=== PATIENT | male | born 1945 | race Caucasian/White ===

== ENCOUNTER 2017-05-08 17:09 | Inpatient (IN) ==
[2017-05-08 18:26] LABS: Hematocrit 20.9 VOL% (42.0-52.0); Hemoglobin 7.3 GM/DL (14.0-18.0); Lymphocytes # 0.4 10*3/uL (1.4-4.0); Mean Corpuscular HGB Conc 34.9 GM/DL (32-36); Mean Corpuscular Hemoglobin 36 PG (27-34); Mean Platelet Volume 9.2 FL (9.6-12.0); Monocytes # 0.1 10*3/uL (0.11-0.8); Neutrophils # 0.1 10*3/uL (1.4-7.4); Platelet Count 122 T/CUMM (130-400); Red Blood Count 2.03 MC/CUMM (3.8-5.5); Red Cell Distribution Width 14.3 % (9.3-17.3)
[2017-05-08 18:28] LABS: White Blood Count 0.5 T/CUMM (4-12)
[2017-05-08 18:41] LABS: Alanine Aminotransferase 11 U/L (16-61); Albumin 2.9 G/DL (3.4-5.0); Alkaline Phosphatase 56 U/L (45-117); Aspartate Amino Transferase 11 U/L (0-37); Blood Urea Nitrogen 12 MG/DL (7-18); Calcium 8.3 MG/DL (8.5-10.1); Glucose 97 MG/DL (74-106); Osmolality,Calculated 272.8 MOS/KG (273-304); Sodium 137 MMOL/L (136-145); Total Protein 6.5 G/DL (6.4-8.3); Troponin I Only < 0.015 NG/ML (0.00-0.045)
--- NOTE | 2017-05-08 18:41 | Emergency Department Note ---
IJanneth Emily, am scribing for, and in the presence of, Hanny Sheikh DO 18:17. IAguilar Debra, DO, personally performed the services described in this documentation, ascribed by Yesi Lagunas in my presence, and it is both accurate and complete [id number] . Arrival - Arrival Chief Complaint: Weakness Stated Complaint: breathibg, blood count low ED Nursing Triage Note: C/o generalized weakness-onset 5 days ago. Patient was sent by home health for further evaluation of WBC count of 0.45. Mode of Arrival: Wheelchair Limitations: No Limitations Source: Patient - History of Present Illness HPI Narrative: Pt is a 72 y/o male who was referred from Home Health for further evaluation of low WBC of 0.45. Pt c/o weakness for past 5 days. Pt reports having UTI dx today by Home Healthcare with blood work showing, with intermittent bilateral side pains. Pt has associated sx of SOB that started today. Pt notes having pains from his arthritis. Onset (ago): day(s) Consistency: constant Severity: mild, moderate Severity scale (1-10): 4 Quality: aching Allergies/Adverse Reactions: Allergies Allergy/AdvReac Type Severity Reaction Status Date / Time No Known Allergies Allergy Verified 12/12/16 12:56 Home Medications: Home Medications Medication Instructions Recorded Confirmed Type Acetaminophen with Codeine 1 each PO Q6H PRN 08/27/15 04/15/16 History [Acetaminophen-Cod #4 Tablet] Omeprazole [Prilosec] 20 mg PO DAILY 08/27/15 04/15/16 History Citalopram [CeleXA] 20 mg PO BEDTIME 04/15/16 04/15/16 History Potassium Chloride 20 meq PO DAILY 04/15/16 04/15/16 History Triamterene/Hctz 37.5-25 Tab 1 tablet PO DAILY 04/15/16 04/15/16 History [Maxzide 37.5-25] Albuterol Inhaler [Proventil 2 puff INH Q6H PRN #2 inhaler 04/20/16 Rx Inhaler] Fluticasone/Salmeterol 250-50 1 puff INH BID #90 diskus 04/20/16 Rx [Advair 250-50] cephALEXin [Keflex] 500 mg PO Q8HR #20 capsule 04/20/16 Rx predniSONE TAB [PredniSONE] 10 mg PO BID #30 tablet 04/20/16 Rx Ondansetron Tab [Zofran Tab] 4 mg PO Q6H #20 tablet 12/12/16 Rx Sulfameth/Trimeth 800-160 Tab 1 tablet PO BID #14 tablet 12/12/16 Rx [Bactrim DS Tab] Review of System - Review of System 12 point system: reviewed and no additional remarkable complaints except as stated - Review of System Constitutional: Present: fever (low grade in ED), weakness. Absent: chills Respiratory: Present: respiratory distress (SOB). Absent: cough Cardiovascular: Absent: chest pain, palpitations, syncope Gastrointestinal: Present: abdominal pain (intermittent both side pains). Absent: nausea, vomiting, diarrhea Musculoskeletal: Absent: arm pain, back pain Skin: Absent: rash Neurological: Absent: headache Psychiatric: Absent: anxiety Medical,Surgical,& Family Hx - Medical History Cardio: History of: Hypertension Endocrine: No history of: Diabetes Mellitus (IDDM), Diabetes Mellitus (NIDDM) Rheumatology: History of;: Rheumatoid Arthritis Respiratory: History of: COPD, Respiratory Problems ("Rheumatoid lung") Renal: No history of: Renal Failure, Renal Problems Genitourinary: History of: Bladder Problem (incontinence since prostatectomy), Prostate Problems, Genitourinary Cancer (prostate CA) No history of: Kidney Stones Gastrointestinal: No history of: Gastrointestinal Bleed, Liver Problems, GI Problems Musculoskeletal: History of: Musculoskeletal Problems (Sxgijgk-Younk-Wcdix lower extremities) - Surgical History Reproductive Surgeries: Surgical HX of;: Prostate Surgery (prostatectomy for prostate CA) - Family History Family History: Reports;: Family Hypertension - Social History Smoking Status: Current every day smoker Frequency of Alcohol Use: None Type of Drug Use: None Marital Status: Single Lives With:: Alone Functional capacity: independent ambulation Exam Vital Signs: Vital Signs Temperature 100.4 F H 05/08/17 17:23 Pulse Rate 101 H 05/08/17 18:30 Respiratory Rate 20 05/08/17 18:30 Blood Pressure 124/52 05/08/17 18:30 O2 Sat by Pulse Oximetry 100 05/08/17 18:30 - General General appearance: alert, in no apparent distress - Head Head exam: Present: atraumatic, normocephalic - Eye Eye exam: Present: PERRL, EOMI - ENT ENT exam: Present: mucous membranes moist. Absent: mucous membranes dry - Neck Neck exam: Present: full ROM. Absent: tenderness - Chest Chest inspection: Present: symmetric chest wall rise. Absent: tenderness - Respiratory Respiratory exam: Present: normal lung sounds bilaterally. Absent: accessory muscle use, respiratory distress, wheezes - Cardiovascular Cardiovascular exam: Present: regular rate, normal rhythm, normal heart sounds. Absent: tachycardia - Abdominal Exam Abdominal exam: Present: soft, normal bowel sounds. Absent: distention, tenderness, guarding, rebound - Extremities Exam Extremities exam: Present: full ROM. Absent: tenderness, pedal edema - Neurological Exam Neurological exam: Present: alert, oriented X3, CN II-XII intact. Absent: motor sensory deficit - Psychiatric Psychiatric exam: Present: normal affect, normal mood - Skin Skin exam: Present: warm, dry Course Course Narrative: spoke with hospitalist service who will admit pt. pt is stable at this time. has low wbc, low potassium and low h and h. also has uti , for which 1 gram rocephin was given. Results - Labs CBC & BMP: 05/08/17 17:54 05/08/17 17:54 Lab Results: I have reviewed the patients labs Labs: Laboratory Tests 05/08/17 05/08/17 05/08/17 17:54 17:54 18:20 WBC 0.5 L* RBC 2.03 L Hgb 7.3 L Hct 20.9 L MCV 103.0 H MCH 36 H Plt Count 122 L MPV 9.2 L Neut % (Auto) 10.0 L Lymph % (Auto) 76.0 H Neut # (Auto) 0.1 L Lymph # (Auto) 0.4 L [place] # (Auto) 0.1 L Potassium 3.0 L Chloride 96 L Calculated Osmolality 272.8 L Calcium 8.3 L ALT 11 L Albumin 2.9 L Globulin 3.6 H Albumin/Globulin Ratio 0.8 L Urine Appearance Cloudy Urine pH 6.0 Ur Specific [place] 1.008 Urine Protein 30 Urine Glucose (UA) Negative Urine Ketones 5 Urine Blood Moderate Urine Urobilinogen 4.0 H Urine Leukocytes Small H Urine RBC 2 Urine WBC 10 Ur Squamous Epith Cells Occasional Urine Bacteria Many Urine Mucus Moderate - EKG EKG results: interpreted by ABDIEL, WNL, sinus rhythm Disposition Clinical Impression: Anemia, Hypokalemia, Leukopenia, UTI (urinary tract infection) Case discussed with: patient Disposition: Still a Patient Condition: Stable Time of Disposition: 19:01
[2017-05-08 18:43] LABS: Apearance,Urine CLOUDY (Clear); Bacteria,Urine Many /HPF (Few); Bilirubin,Urine Negative (Negative); Blood, Urine Moderate mg/dL (Negative); Glucose,Urine (UA) Negative (Negative); Ketones,Urine 5 mg/dL (Negative); Mucus,Urine Moderate /LPF (Occasional); Nitrite,Urine Negative (Negative); Protein,Urine 30 MG/DL; RBC,Urine 2 /HPF (0-4); Squamous Epithelial Cell,Urine Occasional /HPF (0-10); Urine Color Yellow (Yellow); Urine Specific Gravity 1.008 (1.001-1.035); WBC,Urine 10 /HPF (0-6)
--- NOTE | 2017-05-08 18:44 | XRay Report ---
Portable chest Date: 05/08/2017 Clinical history: Weakness, chest pain Comparison: 04/16/2016 Technique: Portable AP sitting chest Findings: The heart is normal in size. The lungs remain overexpanded with minimal atelectasis at the lung bases. Stable mediastinum with degenerative changes. Impression: Bullous emphysema with chronic scarring. Minimal atelectasis at the lung bases. PROCEDURE INTERPRETED AT [facility] DEPARTMENT OF RADIOLOGY Final Report Signed by: Dr. Celine Beal
[2017-05-08] MEDS ORDERED: POTASSIUM CHLORIDE 20 MEQ TABLET PO STA (18:45)
[2017-05-08 18:50] LABS: Lymphocytes 78 % (20-55); Segmented Neutrophils 18 % (50-85)
[2017-05-08 18:51] LABS: Eosinophils 2 % (0-10); Giant Platelets Few; Total Cells Counted 50
[2017-05-08] MEDS ORDERED: ONDANSETRON 4 MG/2 ML VIAL IV PRN (18:51)
[2017-05-08 18:52] LABS: Anisocytosis 2+; Macrocytosis 2+; Poikilocytosis Slight; Smudge Cells Few
[2017-05-08] MEDS ORDERED: POTASSIUM CHLORIDE 20 MEQ TABLET PO ONE (18:52)
[2017-05-08] MEDS ORDERED: SODIUM CHLORIDE 0.9% 1,000 ML IV SCH (19:00)
[2017-05-08] MEDS ORDERED: cefTRIAXone 1,000 MG in SODIUM CHLORIDE 0.9% 100 ML IV STA (19:01)
[2017-05-08] MEDS ORDERED: cefTRIAXone 1,000 MG VIAL ONE (19:14)
[2017-05-08 19:18] LABS: % Iron Saturation 23.1 % (18-50); Ferritin 451.2 ng/ml (26-388); Free T4 (Free Thyroxine) 1.38 NG/DL (0.76-1.46)
[2017-05-08 19:22] LABS: Risk Ratio 3.35; Thyroid Stimulating Hormone 0.779 uIU/ml (0.358-3.74); VLDL CHOLESTEROL 20.6 MG/DL
[2017-05-08 19:25] LABS: Folate 7.3 NG/ML (5.4-24.0)
--- NOTE | 2017-05-08 20:22 | Hospitalist History & Physical ---
Assessment and Plan - Time spent with patient Time spent with patient: Less than 30 minutes (1) Anemia Status: Chronic Assessment and plan: We will check fecal Hemoccult and CBC in the morning. Order 1 unit packed red blood cells due to low H&H, shortness of breath and fatigue. Current Visit: Yes (2) Hypokalemia Status: Chronic Assessment and plan: Patient with history of hypokalemia, 40 mEq oral potassium given in ED. Potassium chloride 20 mEq p.o. daily. Current Visit: Yes (3) Leukopenia Status: Acute Assessment and plan: Patient with history of leukopenia. Check B12 in a.m. Recheck CBC in a.m. Blood cultures pending. Start Zosyn 3.375 g every 8 hours Current Visit: Yes (4) UTI (urinary tract infection) Status: Acute Assessment and plan: Urine culture pending. Zosyn 3.375 mg IV every 8 hours. Current Visit: Yes Qualifiers: Hematuria presence: without hematuria History of Present Illness Chief complaint: Neutropenic fever History of present illness: Mr. Eastman is a 72 year old male who presents to the [facility] ED [facility] complaining of several day history of worsening fatigue and malaise. Patient states he has felt very fatigued lately and becomes short of breath very easily. He has a history of prostate cancer with prostatectomy and saw Dr. Hardy for follow-up. He has not seen Dr. Hardy in about 6 months and has been recently released from his care due to no oncologic activity. He states that he still smokes about a half pack a day. He states that he was supposed to be on blood thinners and hypertension meds but he does not take them, believing that this will make him lose more weight. He states that his appetite is decreased but he feels that he keeps up with his fluid intake. He denies hematochezia or melena. He denies any cardiac history. In the ED ian patient has a fever of 100.4F, positive for UTI, hemoglobin of 7.3 and leukopenia. He states that he has been told he had a low white count before on a prior admission as well as anemia. We will be admitted to the inpatient service for evaluation and treatment of neutropenic fever. Patient wishes to be a DNR. Home Medications Medication Instructions Recorded Confirmed Type Acetaminophen with Codeine 1 each PO Q6H PRN 08/27/15 05/08/17 History [Acetaminophen-Cod #4 Tablet] Citalopram [CeleXA] 20 mg PO BEDTIME 04/15/16 05/08/17 History Potassium Chloride 20 meq PO QPM 04/15/16 05/08/17 History Triamterene/Hctz 37.5-25 Tab 1 tablet PO DAILY 04/15/16 05/08/17 History [Maxzide 37.5-25] Albuterol Inhaler [Proventil 2 puff INH Q6H PRN #2 inhaler 04/20/16 05/08/17 Rx Inhaler] Fluticasone/Vilanterol [Breo 1 puff INH DAILY 05/08/17 05/08/17 History Ellipta 100-25 Mcg INH] Omeprazole [Omeprazole] 40 mg PO QPM 05/08/17 05/08/17 History Allergies Allergy/AdvReac Type Severity Reaction Status Date / Time No Known Allergies Allergy Verified 12/12/16 12:56 Medical,Surgical,& Family Hx - Medical History Cardio: History of: Hypertension Endocrine: No history of: Diabetes Mellitus (IDDM), Diabetes Mellitus (NIDDM) Rheumatology: History of;: Rheumatoid Arthritis Respiratory: History of: COPD, Respiratory Problems ("Rheumatoid lung") Renal: No history of: Renal Failure, Renal Problems Genitourinary: History of: Bladder Problem (incontinence since prostatectomy), Prostate Problems, Genitourinary Cancer (prostate CA) No history of: Kidney Stones Gastrointestinal: No history of: Gastrointestinal Bleed, Liver Problems, GI Problems Musculoskeletal: History of: Musculoskeletal Problems (Srxdhpp-Ezzak-Rnxnq lower extremities) - Surgical History Reproductive Surgeries: Surgical HX of;: Prostate Surgery (prostatectomy for prostate CA) - Family History Family History: Reports;: Family Hypertension - Social History Smoking Status: Current every day smoker Frequency of Alcohol Use: None Type of Drug Use: None 12 point system: reviewed and no additional remarkable complaints except as stated - Constitutional Constitutional: Present: as per HPI, fatigue, fever(s), lethargy, malaise - Respiratory Respiratory: Present: dyspnea on exertion Exam - Constitutional Vitals: Period Temp Pulse Resp BP Sys/Jaquez Pulse Ox Last 24 Hr 100.4 F-100.4 F 89-103 18-20 115-133/52-67 97-100 General appearance: under weight - Head Head exam: Present: normal inspection - Eye Eye exam: Present: EOMI Pupils: Present: LASHAWN - Neck Neck exam: Present: normal inspection - Respiratory Respiratory exam: Present: clear to auscultation bilaterally - Cardiovascular Cardiovascular exam: Present: regular rate and rhythm - GI/Abdominal GI/Abdominal exam: Present: normal bowel sounds - Extremities Exam Extremities exam: Present: edema (Edema in feet bilaterally, right worse than left.) - Neurological Exam Neurological exam: Present: alert, oriented X3 - Psychiatric Psychiatric exam: Present: normal affect, normal mood - Skin Skin exam: Present: normal color, warm Results - Labs CBC & BMP: 05/08/17 17:54 05/08/17 17:54 Lab Results: I have reviewed the past 24 hour labs Quality Measures - VTE Contraindication to Pharmacological VTE Prophylaxis: Active Bleeding
[2017-05-08] MEDS ORDERED: SODIUM CHLORIDE 0.9% 250 ML IV PRN (21:11)
[2017-05-08] MEDS ORDERED: ALBUTEROL INH PRN (21:11)
[2017-05-08] MEDS: SODIUM CHLORIDE 0.9% 1,000 ML IV SCH (21:24)
[2017-05-08] MEDS: PIPERACILLIN/TAZOBACTAM 3,375 MG in SODIUM CHLORIDE 0.9% 100 ML IV SCH (22:01)
[2017-05-08] MEDS: CITALOPRAM 20 MG TABLET PO SCH (22:03)
[2017-05-09] MEDS ORDERED: ONDANSETRON 4 MG/2 ML VIAL IV PRN (00:27)
[2017-05-09] MEDS: ACETAMINOPHEN 325 MG TABLET PO PRN ×3 (00:45→21:43)
[2017-05-09] MEDS: PIPERACILLIN/TAZOBACTAM 3,375 MG in SODIUM CHLORIDE 0.9% 100 ML IV SCH ×3 (06:35→21:40)
--- NOTE | 2017-05-09 08:24 | EKG Report ---
Stationary ECG Study [facility] ER Test Date: 05/08/2017 6:41:33 PM Pat Name: BONNIE SAHA Department: Room: 428 Gender: M Cupboard Builder: : 1945 Requested by: Hanny Sheikh Order Number: [id number] Reading MD: KIANNA GOMEZ Intervals [place] Rate: 88 P: 81 MN: 124 QRS: 106 QRSD: 105 T: 61 QT: 372 QTc: 418 Interpretive Statements SINUS RHYTHM RIGHT AXIS DEVIATION NON-SPECIFIC IVCD Electronically Signed On 05-09-17 10:07:58 CDT by KIANNA GOMEZ [email or web address]
[2017-05-09] MEDS: POTASSIUM CHLORIDE 20 MEQ TABLET PO SCH (08:31)
[2017-05-09] MEDS: PANTOPRAZOLE 40 MG VIAL IV SCH (08:31)
--- NOTE | 2017-05-09 10:34 | Oncology Progress Note ---
Oncology Subjective PN Interval history: Patient known from initial consultation April 2016. He had significant neutropenia at that time which was felt related to his underlying rheumatoid arthritis. He is admitted with malaise and fatigue. He does have a symptomatic anemia and has received transfusions. Reticulocyte count is mildly elevated. Haptoglobin is ordered to assess for hemolysis. Fecal occult blood testing is also pending. The patient states that he was scheduled for both upper and lower endoscopy during the month of May. He is having some mild dysphagia to solid foods and may have some degree of esophageal narrowing. This was once previously evaluated by Dr. Shook with an EGD. He does have a gram-negative UTI and is receiving antibiotics. I do not appreciate any adenopathy or splenomegaly on examination. I will give Neupogen to increase his white blood cell count during his infectious process. Platelets are acceptable. The anemia should be worked up independently of the neutropenia at this time. Exam - Constitutional Vitals: Period Temp Pulse Resp BP Sys/Jaquez Pulse Ox Last 24 Hr 98.1 F-101.0 F 75-103 18-20 92-138/34-67 95-100 Results - Labs CBC & BMP: 05/08/17 17:54 05/08/17 17:54 Quality Measures - VTE Contraindication to Pharmacological VTE Prophylaxis: Active Bleeding
[2017-05-09] MEDS: SODIUM CHLORIDE 0.9% 1,000 ML IV SCH (10:53)
[2017-05-09] MEDS: FILGRASTIM-SNDZ 300 MCG/0.5 ML SYRINGE SUBCUT SCH (11:04)
--- NOTE | 2017-05-09 11:20 | Hospitalist Progress Note ---
Assessment and Plan - Time spent with patient Time spent with patient: Greater than 30 minutes (1) Pancytopenia Status: Acute Assessment and plan: Oncology on board and BM biopsy thursday. Current Visit: Yes (2) UTI (urinary tract infection) Status: Acute Assessment and plan: Continue antibiotics. Current Visit: Yes Qualifiers: Hematuria presence: without hematuria (3) Anemia Status: Chronic Assessment and plan: Retics appropriately elevated. JERILYN based on panel. Recheck levels. Heme occults to check for GI bleeding. Current Visit: Yes Hospitalist: Subjective Interval history: Received 2 units pRBCs this morning. Started on Zosyn for UTI. Reports feeling better this morning. Exam - Constitutional Vitals: Period Temp Pulse Resp BP Sys/Jaquez Pulse Ox Last 24 Hr 98.1 F-101.0 F 75-103 18-20 92-138/34-67 95-100 General appearance: normal weight, no acute distress, disheveled - Head Head exam: Present: normocephalic, atraumatic - Eye Eye exam: Present: EOMI Pupils: Present: LASHAWN - ENT ENT exam: Present: normal exam - Neck Neck exam: Present: normal inspection - Respiratory Respiratory exam: Present: clear to auscultation bilaterally. Absent: rhonchi, wheezes - Cardiovascular Cardiovascular exam: Present: regular rate and rhythm. Absent: gallop, rubs, systolic murmur - GI/Abdominal GI/Abdominal exam: Present: normal bowel sounds, soft. Absent: distended, firm , guarding, tenderness, rebound - Extremities Exam Extremities exam: Present: normal inspection. Absent: calf tenderness, edema Results - Labs CBC & BMP: 05/08/17 17:54 05/08/17 17:54 Lab Results: I have reviewed the past 24 hour labs Quality Measures - VTE Contraindication to Pharmacological VTE Prophylaxis: Active Bleeding
[2017-05-09 11:46] LABS: Albumin 2.4 G/DL (3.4-5.0); Bilirubin,Total 1.1 MG/DL (0.2-1.0); Magnesium 1.8 MG/DL (1.8-2.4); Osmolality,Calculated 280.4 MOS/KG (273-304); Potassium 3.5 MMOL/L (3.5-5.1); Total Protein 5.4 G/DL (6.4-8.3)
[2017-05-09] MEDS: Fluticasone/Vilanterol [Breo Ellipta 100-25 Mcg Inh] 1 PUFF INH SCH (16:27)
[2017-05-09] MEDS: CITALOPRAM 20 MG TABLET PO SCH (21:40)
[2017-05-10 02:22] LABS: Hematocrit 22.3 VOL% (42.0-52.0); Hemoglobin 7.6 GM/DL (14.0-18.0); Immature Granulocytes Absolute 0.04 #; Lymphocytes # 0.4 10*3/uL (1.4-4.0); Lymphocytes % 62.7 % (21.2-54.2); Mean Corpuscular HGB Conc 34.1 GM/DL (32-36); Mean Corpuscular Hemoglobin 33 PG (27-34); Mean Corpuscular Volume 95.3 FL (87-102); Mean Platelet Volume 9.4 FL (9.6-12.0); Monocytes # 0.2 10*3/uL (0.11-0.8); Monocytes % 22.4 % (1.7-12.7); Neutrophils % 5.9 % (38.7-73.9); Platelet Count 97 T/CUMM (130-400); Red Blood Count 2.34 MC/CUMM (3.8-5.5); Red Cell Distribution Width 20.8 % (9.3-17.3)
[2017-05-10 02:30] LABS: White Blood Count 0.7 T/CUMM (4-12)
[2017-05-10 03:10] LABS: Band Neutrophils 7 % (0-10); Lymphocytes 77 % (20-55); Metamyelocytes 3 %; Myelocytes 10 %; Nucleated Red Blood Cells 1 (0-5); Segmented Neutrophils 3 % (50-85); Total Cells Counted 100
[2017-05-10 03:11] LABS: Anisocytosis 1+; Platelet Estimate Decreased
[2017-05-10] MEDS: SODIUM CHLORIDE 0.9% 1,000 ML IV SCH (05:59)
[2017-05-10] MEDS: PIPERACILLIN/TAZOBACTAM 3,375 MG in SODIUM CHLORIDE 0.9% 100 ML IV SCH (06:03)
[2017-05-10] MEDS: PANTOPRAZOLE 40 MG VIAL IV SCH (08:46)
[2017-05-10] MEDS: POTASSIUM CHLORIDE 20 MEQ TABLET PO SCH (08:46)
[2017-05-10] MEDS: FILGRASTIM-SNDZ 300 MCG/0.5 ML SYRINGE SUBCUT SCH (08:46)
[2017-05-10] MEDS ORDERED: SODIUM CHLORIDE 0.9% 250 ML IV PRN (11:03)
--- NOTE | 2017-05-10 11:03 | Hospitalist Progress Note ---
Assessment and Plan - Time spent with patient Time spent with patient: Greater than 30 minutes (1) Pancytopenia Status: Acute Assessment and plan: Oncology on board and BM biopsy thursday. Current Visit: Yes (2) UTI (urinary tract infection) Status: Acute Assessment and plan: Continue antibiotics. Current Visit: Yes Qualifiers: Hematuria presence: without hematuria (3) Anemia Status: Chronic Assessment and plan: Awaiting heme occults. Will transfuse another 2 units. Current Visit: Yes Hospitalist: Subjective Interval history: No complaints or overnight events. Exam - Constitutional Vitals: Period Temp Pulse Resp BP Sys/Jaquez Pulse Ox Last 24 Hr 97.7 F-100.3 F 73-85 16-18 107-131/49-62 98-100 General appearance: no acute distress - Head Head exam: Present: normocephalic, atraumatic - Eye Eye exam: Present: EOMI Pupils: Present: LASHAWN - ENT ENT exam: Present: normal exam - Neck Neck exam: Present: normal inspection - Respiratory Respiratory exam: Present: clear to auscultation bilaterally. Absent: rhonchi, wheezes - Cardiovascular Cardiovascular exam: Present: regular rate and rhythm. Absent: gallop, rubs, systolic murmur - GI/Abdominal GI/Abdominal exam: Present: normal bowel sounds, soft. Absent: distended, firm , guarding, tenderness, rebound - Extremities Exam Extremities exam: Present: normal inspection. Absent: calf tenderness, edema Results - Labs CBC & BMP: 05/10/17 01:42 05/09/17 10:49 Lab Results: I have reviewed the past 24 hour labs Quality Measures - VTE Contraindication to Pharmacological VTE Prophylaxis: Active Bleeding
--- NOTE | 2017-05-10 11:09 | Oncology Progress Note ---
Oncology Subjective PN Interval history: Patient with rheumatoid arthritis pancytopenia and E. coli UTI. This is sensitive to the prescribed Rocephin 2 g IV daily. The patient was transfused yesterday but still remains anemic. Occult blood test is pending. He reports feeling better overall. I do appreciate some fullness in the left upper quadrant and I will plan to check a liver spleen ultrasound in the morning. We will also proceed with a bone marrow aspiration and biopsy in the a.m. even though I do not feel strongly that there is an underlying malignant process. Exam - Constitutional Vitals: Period Temp Pulse Resp BP Sys/Jaquez Pulse Ox Last 24 Hr 97.7 F-100.3 F 73-85 16-18 107-131/49-62 98-100 Results - Labs CBC & BMP: 05/10/17 01:42 05/09/17 10:49 Quality Measures - VTE Contraindication to Pharmacological VTE Prophylaxis: Active Bleeding
[2017-05-10] MEDS ORDERED: cefTRIAXone 2,000 MG in SODIUM CHLORIDE 0.9% 100 ML IV SCH (11:30)
[2017-05-10] MEDS: Fluticasone/Vilanterol [Breo Ellipta 100-25 Mcg Inh] 1 PUFF INH SCH (14:53)
[2017-05-10 19:45] LABS: Hematocrit 28.5 VOL% (42.0-52.0)
[2017-05-10 19:47] LABS: Hemoglobin 9.9 GM/DL (14.0-18.0)
[2017-05-10] MEDS: CITALOPRAM 20 MG TABLET PO SCH (21:00)
[2017-05-11 04:25] LABS: Hematocrit 28.6 VOL% (42.0-52.0); Hemoglobin 9.7 GM/DL (14.0-18.0); Immature Granulocytes % 3.1 %; Immature Granulocytes Absolute 0.03 #; Lymphocytes # 0.5 10*3/uL (1.4-4.0); Mean Corpuscular HGB Conc 33.9 GM/DL (32-36); Mean Corpuscular Hemoglobin 31 PG (27-34); Mean Corpuscular Volume 92.3 FL (87-102); Mean Platelet Volume 9.8 FL (9.6-12.0); Monocytes # 0.4 10*3/uL (0.11-0.8); Monocytes % 36.7 % (1.7-12.7); Neutrophils # 0.1 10*3/uL (1.4-7.4); Neutrophils % 9.2 % (38.7-73.9); Platelet Count 106 T/CUMM (130-400)
[2017-05-11 05:25] LABS: Hypochromasia 1+; Lymphocytes 66 % (20-55); Ovalocytes Slight; Platelet Estimate Decreased; Reactive Lymphocytes Few; Segmented Neutrophils 26 % (50-85); Total Cells Counted 100
[2017-05-11] MEDS ORDERED: HEPARIN 5,000 UNIT/1 ML VIAL ONE (07:36)
--- NOTE | 2017-05-11 07:47 | Ultrasound Report ---
Exam: US gallbladder Date:05/11/2017 4:00 AM Indication: Abdominal pain and tenderness Comparison: None Findings: Liver: 15 cm. The exam reveals cystic areas measuring 10 x 11 x 10 mm and 8 x 9 x 10 mm and approximately 4 x 8 mm. Hepatic and portal veins appear patent Gallbladder: No obvious stone disease present. The gallbladder is slightly distended measuring up to approximately 8 to 9 cm and otherwise normal configuration without stones CBD: 5.3 mm up to 7 mm Pancreas: The portion visualized is unremarkable. Kidneys Right kidney: 10.3 x 4.8 x 5.3 cm. No hydronephrosis perinephric fluid collections with multiple cyst measuring up to 10 x 14 x 14 mm with multiple cysts present without obstructive uropathy. Left kidney: Not evaluated Aorta IVC: No obvious aneurysm clearly delineated. Spleen: Not available Impression: 1. Multiple simple cyst of the liver and the right kidney 2. Mild prominence of the gallbladder without obvious stones present. If further evaluation is warranted hepatobiliary imaging with ejection fraction may be beneficial Ultrasound images were stored and captured PROCEDURE INTERPRETED AT [facility] DEPARTMENT OF RADIOLOGY Final Report Signed by: Dr. Cyril Flowers
--- NOTE | 2017-05-11 08:28 | Oncology Progress Note ---
Oncology Subjective PN Interval history: Patient scheduled for bone marrow aspiration biopsy today. His blood counts have improved post repeat transfusion. His ultrasound of the abdomen is reviewed although I have had to place a second order because the spleen was not examined. He can probably be safely discharged later today or tomorrow and arrange follow-up with me in 1-2 weeks at the office. Exam - Constitutional Vitals: Period Temp Pulse Resp BP Sys/Jaquez Pulse Ox Last 24 Hr 97.6 F-99.7 F 67-83 16-22 106-149/50-86 94-100 Results - Labs CBC & BMP: 05/11/17 03:53 05/09/17 10:49 Quality Measures - VTE Contraindication to Pharmacological VTE Prophylaxis: Active Bleeding
--- NOTE | 2017-05-11 09:30 | Physician Query Form ---
CLICK EDIT DOCUMENT TO SELECT QUERY ANSWER --> OK --> SIGN Kendal Sinclair RN Clinical Brick Shader W) [phone] (f) [phone] [email or web address] PROVIDERS: Make your selection(s) from the choices in EACH section by typing an "x" and enter comments in the comment section. Please use your independent medical judgment in providing your response. This request does not imply that any particular answer is desired or expected. CLINICAL INDICATORS: (Providers should not edit this section) Height: 6ft Weight: 104 lbs Wharf Hand BMI: 14.2 Nutritional supplements: Enlive with all meals Instrument Technician notes: Loss of body fat, loss of muscle mass Based on the above, which following choice most accurately represents the patient's nutritional status? ( ) Malnutrition ( ) mild ( ) moderate ( ) severe (x ) Protein calorie malnutrition ( ) mild ( ) moderate ( x) severe ( ) Emaciation due to malnutrition ( ) Nutritional marasmus ( ) Cachexia ( ) Underweight ( ) No nutritional deficiency ( ) Other, please specify: ( ) Clinically unable to determine Mild Malnutrition (BMI < 18.5, % Normal Body Weight 85-95%) Moderate Malnutrition (BMI < 17, % Normal Body Weight 75-85%) Severe Malnutrition (BMI < 16, % Normal Body Weight < 75%) Source: Eloisa COMMENTS: PLEASE ALSO DOCUMENT RESPONSE IN PROGRESS NOTES AND/OR DISCHARGE SUMMARY Use of terms such as suspected, likely, or probable (associated with a specific diagnosis that is being evaluated, monitored, or treated as if it exists) are acceptable and can be restated in the discharge summary if not ruled out. MTDD
--- NOTE | 2017-05-11 09:34 | Post Interventional Procedure ---
Pre-op diagnosis: Cytopenia Post-op diagnosis: same Procedure: Bone marrow aspirate left posterior iliac Flouroscopy: See radiology report Radiologist: Abiel Naik Anesthesia: local Specimens: other (Bone marrow aspirate 11 cc, bone marrow biopsy) Estimated blood loss: none Complications: none Condition: stable Assessment and Plan - Time spent with patient Time spent with patient: Less than 30 minutes
[2017-05-11] MEDS: PANTOPRAZOLE 40 MG VIAL IV SCH (09:48)
[2017-05-11] MEDS: POTASSIUM CHLORIDE 20 MEQ TABLET PO SCH (09:48)
[2017-05-11] MEDS: FILGRASTIM-SNDZ 300 MCG/0.5 ML SYRINGE SUBCUT SCH (09:48)
[2017-05-11] MEDS: Fluticasone/Vilanterol [Breo Ellipta 100-25 Mcg Inh] 1 PUFF INH SCH (09:51)
--- NOTE | 2017-05-11 10:46 | Interventional Radiology Rpt ---
IR Bone Marrow Biopsy Indication: Anemia, pancytopenia. Rheumatoid arthritis. BONE MARROW BIOPSY- ASPIRATE Description: A formal timeout was performed. Fluoroscopic observation shows the left posterior iliac crest to be the best candidate for sampling from a posterior approach. With the patient prone on the fluoroscopy table, the overlying skin was prepped and draped in a sterile fashion. Skin was anesthetized with 5 cc 1% lidocaine, with lidocaine injected down to the periosteal surface. Under fluoroscopic observation, a 11 gauge Arrow guide needle was advanced to the periosteum. The outer cortex was gently penetrated with the vi tip stylette needle. A "Arrow on Control" drill was then used to penetrate the cortex several millimeters. After removing the stylette, bone marrow aspirate was performed obtaining 11 cc of bone marrow, directly into a syringe prefilled with 2000 units heparin. Cytopathology received the bone marrow aspirate and determined it was an adequate sample. The drill was reattached and the coring needle advanced an additional 3 cm into the marrow space and then withdrawn in one motion. The 11-gauge biopsy specimen was then removed from the needle and handed to cytopathology. A bandage was placed at the puncture site. Patient tolerated the procedure well. Medications: None. Fluoroscopy: 0.9 minutes. Impression: Uncomplicated successful bone marrow biopsy and aspirate as described. PROCEDURE INTERPRETED AT [facility] DEPARTMENT OF RADIOLOGY Final Report Signed by: Abiel Naik M.D.
[2017-05-11 11:43] VITALS: BP 114/69
--- NOTE | 2017-05-11 12:04 | Discharge Summary ---
Hospital Course - Hospital Course Hospital Course: Mr. Henderson was admitted with fever, urinary tract infection and pancytopenia. He was initiated on Zosyn, initially, until his urine culture returned E. coli in which case he was switched to ceftriaxone for the remainder of his hospital stay. At discharge this was adjusted to oral cefuroxime. At discharge his fever had resolved. He will continue his antibiotics for an additional 2 weeks at discharge. Pancytopenia: Patient received 3 units of packed red blood cells. Hemoccult was negative. He was seen in consultation by oncology. Patient had a bone marrow biopsy and will follow-up with oncology as an outpatient. His anemia does not appear to be secondary to GI blood loss and appears to be more related to anemia of chronic disease versus reduced bone marrow production. Severe protein calorie malnutrition: Mr. Henderson was instructed on increasing his protein intake with supplemental shakes. By discharge he had met maximum benefit of hospitalization. I spent 36 minutes coordinating this discharge. - Time spent with patient Time with patient DS: Greater than 30 minutes Diagnosis - Discharge Diagnosis (1) Pancytopenia Status: Acute (2) UTI (urinary tract infection) Status: Acute (3) Anemia Status: Chronic Specialty Discharge - Follow Up or Referrals Follow up with: Abiel Hardy MD [Physician] - 05/25/17 11:10 am Discharge Plan - Discharge Data Disposition: Disch To Home/Self Care Condition at Discharge: Stable Discharge Diet: advance to your usual diet Activity: resume usual activities as tolerated - Discharge Medications New Cefuroxime Tab [Ceftin] 500 mg PO BID #28 tablet Continue Acetaminophen with Codeine [Acetaminophen-Cod #4 Tablet] 1 each PO Q6H PRN PRN Reason: Pain Citalopram [CeleXA] 20 mg PO BEDTIME Albuterol Inhaler [Proventil Inhaler] 2 puff INH Q6H PRN #2 inhaler PRN Reason: Shortness Of Breath/Wheezing Fluticasone/Vilanterol [Breo Ellipta 100-25 Mcg INH] 1 puff INH DAILY Omeprazole 40 mg PO QPM Discontinued Triamterene/Hctz 37.5-25 Tab [Maxzide 37.5-25] 1 tablet PO DAILY Potassium Chloride 20 meq PO QPM - Follow Up or Referral Follow Up: Abiel Hardy MD [Physician] - 05/25/17 11:10 am - Forms/Instructions Instructions: Neutropenia (DC) Exam - Constitutional Vitals: Period Temp Pulse Resp BP Sys/Jaquez Pulse Ox Last 24 Hr 97.6 F-99.7 F 67-83 14-22 106-149/50-86 94-100 General appearance: normal weight, no acute distress - Head Head exam: Present: normal inspection, normocephalic, atraumatic - Eye Eye exam: Present: EOMI Pupils: Present: LASHAWN - ENT ENT exam: Present: normal exam - Neck Neck exam: Present: normal inspection - Respiratory Respiratory exam: Present: clear to auscultation bilaterally. Absent: accessory muscle use, prolonged expiratory phase, wheezes - Cardiovascular Cardiovascular exam: Present: regular rate and rhythm. Absent: bradycardia, irregular rhythm, systolic murmur - GI/Abdominal GI/Abdominal exam: Present: normal bowel sounds. Absent: ascites, hypoactive bowel sounds - Extremities Exam Extremities exam: Present: normal inspection Discharge Results Procedures and tests throughout hospitalization: Pending Orders 05/08/17 17:54 Transferrin Stat 05/08/17 21:55 Blood Culture Routine 05/09/17 21:11 Occult Blood, Stool Routine 05/11/17 08:24 US abdomen limited Routine 05/12/17 04:00 CBC [Comp Blood Count Auto Diff] IN AM Labs on day of discharge: Labs from last 24 hours 05/11/17 05/10/17 05/10/17 03:53 19:40 01:42 WBC 1.0 L D RBC 3.10 L D Hgb 9.7 L 9.9 L D Hct 28.6 L 28.5 L MCV 92.3 MCH 31 MCHC 33.9 RDW 20.0 H Plt Count 106 L MPV 9.8 Neut % (Auto) 9.2 L Lymph % (Auto) 50.0 [place] % (Auto) 36.7 H Eos % (Auto) 1.0 Baso % (Auto) 0.0 Neut # (Auto) 0.1 L Lymph # (Auto) 0.5 L [place] # (Auto) 0.4 Eos # (Auto) 0.0 Baso # (Auto) 0.0 Total Counted 100 Immature Gran % 3.1 Nucleated RBC % 0.0 Immature Gran # 0.03 Segmented Neutrophils 26 L Lymphocytes 66 H Monocytes 8 Nucleated RBCs # 0.00 Atypic/Reactive Lymphs Few Platelet Estimate Decreased Hypochromasia 1+ Ovalocytes Slight Morphology Comment Blood Type Cancelled Antibody Screen Cancelled Crossmatch See Detail Blood Bank Comment Cancelled Preliminary micro results at discharge 05/08/17 21:55 Blood Culture - Preliminary Blood No growth at 1 day 05/08/17 21:55 Blood Culture - Preliminary Blood No growth at 1 day DS: Provider Date of admission: 05/08/17 18:49 Primary care physician: . No PCP Attending physician on admission: Moises Vital DO Consults: 05/08/17 18:51 Consult to Physician [CONS] Routine Comment: Consulting Provider: Abiel Hardy When should Consulting Provider be notified: In am Person Notified: Dr. Hardy Date Notified: 05/09/17 Consult Notification Comment: Notified on rounds 05/08/17 21:45 Consult to Dietitian [CONS] Routine Reason for Dietitian: Other Discharging clinician: Stephanie Rincon MD Expected date of discharge: 05/11/17
--- NOTE | 2017-05-11 14:43 | Ultrasound Report ---
Exam: US abdomen limited Date: 05/11/2017 8:24 AM Comparison: None Indication: Pancytopenia, anemia, evaluate spleen size Technique:[Limited transabdominal scans were obtained to evaluate the spleen. Ultrasound images were captured and stored. Color-flow scans obtained.] Findings: The spleen is normal in size with a splenic index of 299. No splenic masses are identified with color flow documented. Impression: Unremarkable spleen with splenic index 299. PROCEDURE INTERPRETED AT [facility] DEPARTMENT OF RADIOLOGY Final Report Signed by: Dr. Celine Beal
--- NOTE | 2017-05-21 13:18 | Pathology Report from [facility] ---
[facility] [place] ACCESSION # : [id number] PATIENT NAME : Bonnie Eastman ORDERING DR : MELONIE PUCKETT MD CLINICAL HX: Pancytopenia POST-OP DX: Same SPECIMEN INFO: Bone marrow biopsy to [facility] GROSS DESCRIPTION: Received is a bone marrow biopsy to be packed and shipped to [facility] by the Hematopathology Department. 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 See assessment.COMPREHENSIVE ASSESSMENT: Flow cytometry shows ~72% CD34+ myeloblasts. Morphological evaluation reveals normocellular marrow showing markedly left-shifted granulopoiesis with increased myeloblasts (~70-80%). Cytogenetic/FISH studies detect +8. Molecular tests (AML molecular profile by NGS) reveal Pathogenic alterations in the IFH1 and PHF6 genes. The findings are consistent with acute myeloid leukemia. Trisomy 8 is often associated with AML evolving from MDS and it is associated with intermediate to poor prognosis. IDH1 mutations in the absence of NPM1 mutations are reportedly associated with a more unfavorable prognosis. IDH1 mutations in the absence of NPM1 mutations are reportedly associated with a more unfavorable prognosis PHF6 mutations are associated with a male preponderance and an unfavorable prognosis. PHF6 mutations are associated with a male preponderance and an unfavorable prognosis in patients with normal karyotype or intermediate-risk cytogenetic abnormalities in AML> Clinical correlation is recommended. Dr. Alejo Fajardo has reviewed select slides and agrees with the diagnosis.MORPHOLOGY: Bone marrow, aspirate and core biopsy: (1) Normocellular bone marrow for age ( 40%) showing markedly left-shifted granulopoiesis with increased myeloblasts (~ 70-80%), consistent with acute myeloid leukemia. (2) Increased iron storage and no typical ring sideroblasts identified.FLOW CYTOMETRY: Bone marrow with ~ 72% CD34+ myeloblasts detected.CYTOGENETICS/FISH: Chromosome analysis reveals an ABNORMAL male karyotype.FLT3 MUTATION DETECTION BY PCR: NOT DETECTED for the FLT3 Internal Tandem Duplication (ITD); NOT DETECTED for the FLT3 TKD Mutation.MLL-PTD: NOT DETECTED for the MLL Partial Tandem Duplication (PTD) .GENOMIC PROFILING: AML Molecular Profile: Pathogenic alterations are DETECTED in the IDH1 and PHF6 genes. Likely pathogenic alteration is DETECTED in the RUNX1 gene. COLLECTED DATE: 05/11/2017 [facility] REPORT DATE: 05/21/2017 ELECTRONICALLY SIGNED BY: Moseh Dumont M.D. 05/21/2017 - 12:09:28 MTDAna María
--- NOTE | 2017-05-22 03:22 | Pathology Report from [facility] ---
[facility] [place] : [id number] PATIENT NAME : Bonnie Eastman ORDERING DR : MELONIE PUCKETT MD CLINICAL HX: Pancytopenia POST-OP DX: Same SPECIMEN INFO: Bone marrow biopsy to [facility] GROSS DESCRIPTION: Received is a bone marrow biopsy to be packed and shipped to [facility] by the Hematopathology Department. 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 See assessment.COMPREHENSIVE ASSESSMENT: Flow cytometry shows ~72% CD34+ myeloblasts. Morphological evaluation reveals normocellular marrow showing markedly left-shifted granulopoiesis with increased myeloblasts (~70-80%). Cytogenetic/FISH studies detect +8. Molecular tests (AML molecular profile by NGS) reveal Pathogenic alterations in the IFH1 and PHF6 genes. The findings are consistent with acute myeloid leukemia. Trisomy 8 is often associated with AML evolving from MDS and it is associated with intermediate to poor prognosis. IDH1 mutations in the absence of NPM1 mutations are reportedly associated with a more unfavorable prognosis. IDH1 mutations in the absence of NPM1 mutations are reportedly associated with a more unfavorable prognosis PHF6 mutations are associated with a male preponderance and an unfavorable prognosis. PHF6 mutations are associated with a male preponderance and an unfavorable prognosis in patients with normal karyotype or intermediate-risk cytogenetic abnormalities in AML> Clinical correlation is recommended. Dr. Alejo Fajardo has reviewed select slides and agrees with the diagnosis.MORPHOLOGY: Bone marrow, aspirate and core biopsy: (1) Normocellular bone marrow for age ( 40%) showing markedly left-shifted granulopoiesis with increased myeloblasts (~ 70-80%), consistent with acute myeloid leukemia. (2) Increased iron storage and no typical ring sideroblasts identified.FLOW CYTOMETRY: Bone marrow with ~ 72% CD34+ myeloblasts detected.CYTOGENETICS/FISH: Chromosome analysis reveals an ABNORMAL male karyotype.FLT3 MUTATION DETECTION BY PCR: NOT DETECTED for the FLT3 Internal Tandem Duplication (ITD); NOT DETECTED for the FLT3 TKD Mutation.MLL-PTD: NOT DETECTED for the MLL Partial Tandem Duplication (PTD) .GENOMIC PROFILING: AML Molecular Profile: Pathogenic alterations are DETECTED in the IDH1 and PHF6 genes. Likely pathogenic alteration is DETECTED in the RUNX1 gene. COLLECTED DATE: 05/11/2017 [facility] REPORT DATE: 05/21/2017 ELECTRONICALLY SIGNED BY: Moshe Dumont M.D. 05/21/2017 - 12:09:28 MTDAna María
== END 2017-05-11 15:05 | disposition home health service (06) | DRG 808 ==
LOC: N.ED 17:09 → N.EDINP 18:49 → SUATTDRO 18:49 → N.4E 19:13
PROVIDERS: ADMIT Internal Medicine; ATTEND Internal Medicine

== ENCOUNTER 2017-06-01 18:19 | Inpatient (IN) ==
[2017-06-01] MEDS ORDERED: ACETAMINOPHEN 325 MG TABLET PO ONE (19:11)
[2017-06-01] MEDS ORDERED: SODIUM CHLORIDE 0.9% 1,000 ML IV STA ×2 (19:11→20:54)
--- NOTE | 2017-06-01 19:15 | Emergency Department Note ---
IJeison Brittany, am scribing for, and in the presence of, Hanny Sheikh DO 19:00. IAguilar Debra, DO, personally performed the services described in this documentation, ascribed by Antonette Mchugh in my presence, and it is both accurate and complete 915 . Arrival - Arrival Chief Complaint: Fever Stated Complaint: fever 109- cancer pt/constipation ED Nursing Triage Note: PT C/O FEVER OF 100.9 PRIOR TO ARRIVAL. PT STATES IS VERY WEAK AND SLEEPING ALOT. PT ALSO C/O BEING CONSTIPATED- LAST BM OVER A WEEK AGO. PT TAKES CHEMO INJECTIONS INTO ABD FOR LEUKEMIA. Mode of Arrival: Wheelchair Limitations: No Limitations Source: Patient, Family, RN Notes Reviewed - History of Present Illness HPI Narrative: Patient is a 72 y/o white male presenting to the ED with c/o fever which onset just [employer]. Patient's highest fever [employer] was 100.9. He denies having any Tylenol or Ibuprofen for this. Patient states that he has Leukemia being treated per Dr. Hardy. Patient began receiving chemotherapy injection into his abdomen last week. He states that he has been constipated, last normal bowel movement was 2 weeks ago. He has tried laxatives and stool softeners with no relief. Patient states that he has pain in his buttocks. Patient has no other complaint or pain in the ED at this time. Allergies/Adverse Reactions: Allergies Allergy/AdvReac Type Severity Reaction Status Date / Time No Known Allergies Allergy Verified 06/01/17 18:34 Home Medications: Home Medications Medication Instructions Recorded Confirmed Type Acetaminophen with Codeine 1 each PO Q6H PRN 08/27/15 06/01/17 History [Acetaminophen-Cod #4 Tablet] Citalopram [CeleXA] 20 mg PO BEDTIME 04/15/16 06/01/17 History Albuterol Inhaler [Proventil 2 puff INH Q6H PRN #2 inhaler 04/20/16 06/01/17 Rx Inhaler] Fluticasone/Vilanterol [Breo 1 puff INH DAILY 05/08/17 06/01/17 History Ellipta 100-25 Mcg INH] Omeprazole 40 mg PO QPM 05/08/17 06/01/17 History Review of System - Review of System 12 point system: reviewed and no additional remarkable complaints except as stated - Review of System Constitutional: Present: fever. Absent: chills Eyes: Absent: vision change Head/Ears/Nose/Throat: Absent: nasal drainage, sore throat Respiratory: Absent: respiratory distress Cardiovascular: Absent: chest pain Gastrointestinal: Present: constipation. Absent: abdominal pain, nausea, vomiting, diarrhea Genitourinary male: Absent: urgency, dysuria, frequency Musculoskeletal: Present: other (buttock pain). Absent: arm pain, back pain, leg pain, neck pain Skin: Absent: rash Neurological: Absent: headache Psychiatric: Absent: anxiety, depression Medical,Surgical,& Family Hx - Medical History Cardio: History of: Hypertension Endocrine: No history of: Diabetes Mellitus (IDDM), Diabetes Mellitus (NIDDM) Rheumatology: History of;: Rheumatoid Arthritis Respiratory: History of: COPD, Respiratory Problems ("Rheumatoid lung") Renal: No history of: Renal Failure, Renal Problems Genitourinary: History of: Bladder Problem (incontinence since prostatectomy), Prostate Problems, Genitourinary Cancer (prostate CA) No history of: Kidney Stones Gastrointestinal: No history of: Gastrointestinal Bleed, Liver Problems, GI Problems Musculoskeletal: History of: Musculoskeletal Problems (Smpjvwq-Zyzjy-Qqpoy lower extremities) Other: History of: Cancer (LEUKEMIA) - Surgical History Reproductive Surgeries: Surgical HX of;: Prostate Surgery (prostatectomy for prostate CA) - Family History Family History: Reports;: Family Cancer (mother-colon and throat/ brother-lung) , Family Hypertension Denies;: Family Diabetes, Family Heart Disease, Family Psychiatric Problems, Family Stroke - Social History Smoking Status: Current every day smoker Frequency of Alcohol Use: None Type of Drug Use: None Exam Vital Signs: Vital Signs Temperature 101.8 F H 06/01/17 18:27 Pulse Rate 126 H 06/01/17 18:27 Respiratory Rate 20 06/01/17 20:34 Blood Pressure 109/62 06/01/17 18:27 O2 Sat by Pulse Oximetry 99 06/01/17 18:27 - General General appearance: alert, in no apparent distress, other (thin appearing male) - Head Head exam: Present: atraumatic, normocephalic, normal inspection - Eye Eye exam: Present: normal appearance, PERRL, EOMI - ENT ENT exam: Present: normal exam, normal oropharynx - Neck Neck exam: Present: normal inspection, full ROM, trachea midline - Chest Chest inspection: Present: normal inspection, symmetric chest wall rise - Respiratory Respiratory exam: Present: normal lung sounds bilaterally - Cardiovascular Cardiovascular exam: Present: normal rhythm, tachycardia, normal heart sounds. Absent: regular rate - Abdominal Exam Abdominal exam: Present: soft, normal bowel sounds. Absent: tenderness - Extremities Exam Extremities exam: Present: normal inspection - Back Exam Back exam: Present: normal inspection - Neurological Exam Neurological exam: Present: alert, oriented X3, CN II-XII intact. Absent: motor sensory deficit - Psychiatric Psychiatric exam: Present: normal affect, normal mood - Skin Skin exam: Present: warm (hot to touch), dry Course Course Narrative: spoke with DR Lezama who will admit pt. pt is stable at this time Results - Labs CBC & BMP: 06/01/17 19:36 06/01/17 19:36 Lab Results: I have reviewed the patients labs Labs: Laboratory Tests 06/01/17 06/01/17 19:36 19:36 WBC 0.2 L* RBC 2.25 L Hgb 7.2 L Hct 21.3 L RDW 20.1 H Plt Count 79 L Neut % (Auto) 13.7 L Lymph % (Auto) 72.7 H [place] % (Auto) 13.6 H Neut # (Auto) 0.0 L Lymph # (Auto) 0.2 L [place] # (Auto) 0.0 L INR 1.2 PT Patient/Control Mix 12.3 Circ Anticoag PTT 34.5 Laboratory Tests 06/01/17 19:36 Lactic Acid 2.7 H Laboratory Tests 06/01/17 19:36 Total Counted 100 Segmented Neutrophils 10 L Lymphocytes 84 H Monocytes 6 Platelet Estimate Decreased Hypochromasia Slight Laboratory Tests 06/01/17 19:36 Sodium 134 L Potassium 4.0 Chloride 99 Carbon Dioxide 27 BUN 13 Creatinine 0.70 Glucose 144 H Calculated Osmolality 270.2 L Calcium 8.3 L ALT 12 L Total Protein 5.9 L Albumin 2.5 L Albumin/Globulin Ratio 0.7 L - Diagnostic Findings Procedure: Chest x-ray: report reviewed by me (The cardiomediastinal silhouette is stable in configuration. Interval development of opacification within the upper/lateral left lung suspicious for pneumonia. Scattered pulmonary scarring again noted. The lungs appear somewhat hyperinflated which could reflect emphysematous change. Visualized osseous and surrounding soft tissue structures appear grossly unchanged.) Disposition Clinical Impression: Fever, Pneumonia Clinical Impression: (Ruled Out): UTI (urinary tract infection) Case discussed with: patient, patient's family Disposition: Still a Patient Condition: Stable Time of Disposition: 21:09
[2017-06-01] MEDS ORDERED: ACETAMINOPHEN 325 MG TABLET ONE (19:20)
[2017-06-01 19:45] LABS: Hematocrit 21.3 VOL% (42.0-52.0); Hemoglobin 7.2 GM/DL (14.0-18.0); Lymphocytes # 0.2 10*3/uL (1.4-4.0); Lymphocytes % 72.7 % (21.2-54.2); Mean Corpuscular HGB Conc 33.8 GM/DL (32-36); Mean Corpuscular Hemoglobin 32 PG (27-34); Mean Corpuscular Volume 94.7 FL (87-102); Mean Platelet Volume 10.3 FL (9.6-12.0); Monocytes % 13.6 % (1.7-12.7); Neutrophils % 13.7 % (38.7-73.9); Platelet Count 79 T/CUMM (130-400); Red Blood Count 2.25 MC/CUMM (3.8-5.5); Red Cell Distribution Width 20.1 % (9.3-17.3)
--- NOTE | 2017-06-01 19:49 | XRay Report ---
XR chest 1V portable Indication: Fever, abnormal breath sounds Comparison: Chest x-ray dated May 08, 2017 Technique: Frontal views of the chest Findings: The cardiomediastinal silhouette is stable in configuration. Interval development of opacification within the upper/lateral left lung suspicious for pneumonia. Scattered pulmonary scarring again noted. The lungs appear somewhat hyperinflated which could reflect emphysematous change. Visualized osseous and surrounding soft tissue structures appear grossly unchanged. IMPRESSION: As above. PROCEDURE INTERPRETED AT [facility] DEPARTMENT OF RADIOLOGY Final Report Signed by: Dr Jarrett Riddle
[2017-06-01 19:58] LABS: INR 1.2; PT Patient Result 12.3 SECS; Partial Thromboplastin Time 34.5 SECS (0-40)
[2017-06-01 20:01] LABS: White Blood Count 0.2 T/CUMM (4-12)
[2017-06-01] MEDS ORDERED: LEVOFLOXACIN INJ 750 MG in PREMIX 1 EACH IV STA (20:05)
[2017-06-01 20:18] LABS: Lactic Acid 2.7 MMOL/L (0.4-2.0)
[2017-06-01 20:34] LABS: Hypochromasia Slight; Lymphocytes 84 % (20-55); Platelet Estimate Decreased; Segmented Neutrophils 10 % (50-85); Total Cells Counted 100
[2017-06-01 20:37] LABS: Albumin 2.5 G/DL (3.4-5.0); Bilirubin,Total 0.8 MG/DL (0.2-1.0); Calcium 8.3 MG/DL (8.5-10.1); Osmolality,Calculated 270.2 MOS/KG (273-304); Total Protein 5.9 G/DL (6.4-8.3)
[2017-06-01 20:45] LABS: Apearance,Urine Slightly Hazy (Clear); Bilirubin,Urine Negative (Negative); Blood, Urine Small mg/dL (Negative); Glucose,Urine (UA) Negative (Negative); Ketones,Urine Negative (Negative); Mucus,Urine Occasional /LPF (Occasional); Nitrite,Urine Negative (Negative); Protein,Urine 30 MG/DL; RBC,Urine 1 /HPF (0-4); Squamous Epithelial Cell,Urine Occasional /HPF (0-10); Urine Color Yellow (Yellow); Urine Specific Gravity 1.011 (1.001-1.035); Urine Urobilinogen < 2.0 EU/DL (0.2-1.0); WBC,Urine 1 /HPF (0-6)
[2017-06-01] MEDS ORDERED: VANCOMYCIN INJ 1,000 MG in SODIUM CHLORIDE 0.9% 250 ML IV STA (20:51)
[2017-06-01] MEDS ORDERED: ALBUTEROL/IPRATROPIUM 3 ML NEB RESP TX STA (21:10)
[2017-06-01] MEDS ORDERED: BENZTROPINE 2 MG/2 ML AMP IV PRN (21:11)
[2017-06-01] MEDS ORDERED: traMADol 50 MG TABLET PO PRN (21:11)
[2017-06-01] MEDS ORDERED: ACETAMINOPHEN 325 MG TABLET PO PRN (21:11)
[2017-06-01] MEDS ORDERED: chlorproMAZINE INJ 25 MG in SODIUM CHLORIDE 0.9% 100 ML IV PRN (21:11)
[2017-06-01] MEDS ORDERED: ONDANSETRON 4 MG/2 ML VIAL IV PRN (21:11)
[2017-06-01] MEDS ORDERED: LOPERAMIDE 2 MG CAPSULE PO PRN ×2 (21:11)
[2017-06-01] MEDS ORDERED: chlorproMAZINE INJ 50 MG in SODIUM CHLORIDE 0.9% 100 ML IV PRN (21:11)
[2017-06-01] MEDS ORDERED: MYLANTA/LIDO VISC 2:1 300 ML BOTTLE SWISH/SWAL PRN (21:11)
[2017-06-01] MEDS ORDERED: chlorproMAZINE 25 MG TABLET PO PRN (21:11)
[2017-06-01] MEDS ORDERED: PROMETHAZINE INJ 25 MG in SODIUM CHLORIDE 0.9% 50 ML IV PRN (21:11)
[2017-06-01] MEDS ORDERED: guaiFENesin 200 MG/10 ML UDCUP PO PRN (21:11)
[2017-06-01] MEDS ORDERED: ALUMINUM/MAGNES/SIMETH MAX STR 30 ML UDCUP PO PRN (21:11)
[2017-06-01] MEDS ORDERED: MYLANTA/LIDO VISC 2:1 300 ML BOTTLE SWISH/SPIT PRN (21:11)
[2017-06-01] MEDS ORDERED: diphenhydrAMINE CAP 25 MG CAPSULE PO PRN (21:11)
[2017-06-01] MEDS ORDERED: LACTULOSE 20 GM/30 ML UDCUP PO PRN (21:11)
[2017-06-01] MEDS ORDERED: VANCOMYCIN 1,000 MG VIAL ONE (21:20)
[2017-06-01] MEDS: MEROPENEM 1,000 MG in SODIUM CHLORIDE 0.9% 100 ML IV SCH (23:15)
[2017-06-01] MEDS: SODIUM CHLORIDE 0.9% 1,000 ML IV SCH (23:15)
[2017-06-02 06:29] LABS: Eosinophils % 3.1 % (0.00-10.9); Hematocrit 18.3 VOL% (42.0-52.0); Immature Granulocytes % 3.1 %; Immature Granulocytes Absolute 0.01 #; Lymphocytes # 0.2 10*3/uL (1.4-4.0); Lymphocytes % 65.6 % (21.2-54.2); Mean Corpuscular HGB Conc 33.9 GM/DL (32-36); Mean Corpuscular Hemoglobin 32 PG (27-34); Mean Corpuscular Volume 95.3 FL (87-102); Mean Platelet Volume 9.9 FL (9.6-12.0); Monocytes # 0.1 10*3/uL (0.11-0.8); Monocytes % 18.8 % (1.7-12.7); Neutrophils % 9.4 % (38.7-73.9); Red Blood Count 1.92 MC/CUMM (3.8-5.5); Red Cell Distribution Width 20.6 % (9.3-17.3)
[2017-06-02 06:53] LABS: Hypochromasia 2+; Microcytosis 1+
[2017-06-02 06:57] LABS: Albumin 2.1 G/DL (3.4-5.0); Bilirubin,Total 0.8 MG/DL (0.2-1.0); Calcium 7.6 MG/DL (8.5-10.1); Osmolality,Calculated 277.5 MOS/KG (273-304); Potassium 3.6 MMOL/L (3.5-5.1); White Blood Count 0.3 T/CUMM (4-12)
[2017-06-02] MEDS: MEROPENEM 1,000 MG in SODIUM CHLORIDE 0.9% 100 ML IV SCH ×3 (06:57→22:55)
[2017-06-02 06:58] LABS: Hemoglobin 6.2 GM/DL (14.0-18.0); Platelet Count 80 T/CUMM (130-400)
[2017-06-02 07:40] LABS: Lymphocytes 100 % (20-55); Nucleated Red Blood Cells 1 (0-5); Platelet Estimate Decreased; Total Cells Counted 100
--- NOTE | 2017-06-02 07:55 | XRay Report ---
Exam: XR chest 1V portable Indication: Pneumonia Comparison study: 06/01/2017 radiograph Findings: Focal opacity along the lateral margin of the left upper lobe is again noted, similar prior. This may represent focal pneumonia although underlying soft tissue lesion is not excluded, but favored to be less likely. Diffuse interstitial prominence likely representing scarring changes appears essentially unchanged from prior with mild hyperexpansion of the lungs. The heart, mediastinum and bony structures are stable from prior. There is no pneumothorax or significant pleural effusion. Impression: Interstitial scarring changes with focal opacity lateral left upper lobe essentially unchanged, again may represent focal pneumonia. PROCEDURE INTERPRETED AT [facility] DEPARTMENT OF RADIOLOGY Final Report Signed by: Malcolm Santos
[2017-06-02] MEDS ORDERED: SODIUM CHLORIDE 0.9% 250 ML IV PRN (09:23)
[2017-06-02] MEDS: MAGNESIUM HYDROXIDE SUSP 30 ML UDCUP PO PRN (13:22)
[2017-06-02] MEDS: SODIUM CHLORIDE 0.9% 1,000 ML IV SCH ×2 (13:22→18:49)
--- NOTE | 2017-06-02 16:56 | Oncology History&Physical ---
Assessment and Plan (1) Acute myelogenous leukemia Status: Acute Assessment and plan: Patient will need aggressive antibiotics for pneumonia. Proceed with 2 units of packed red blood cells today. Current Visit: Yes History of Present Illness Chief complaint: Fever History of present illness: Mr. Eastman is a 72 year old male With recently diagnosed acute myelogenous leukemia. History of rheumatoid arthritis. Admitted with dyspnea. He is anemic and will will proceed with red blood cell transfusion today. There is also evidence of left upper lobe opacification noted on admission chest x-ray. The patient has received 1 cycle of outpatient chemotherapy consisting of azacitidine subcu days 1 through 5 and was planning to repeat labs tomorrow which are scheduled on a weekly basis. Consideration of next chemotherapy was scheduled for June 08. Home Medications Medication Instructions Recorded Confirmed Type Acetaminophen with Codeine 1 each PO Q6H PRN 08/27/15 06/01/17 History [Acetaminophen-Cod #4 Tablet] Citalopram [CeleXA] 20 mg PO BEDTIME 04/15/16 06/01/17 History Albuterol Inhaler [Proventil 2 puff INH Q6H PRN #2 inhaler 04/20/16 06/01/17 Rx Inhaler] Fluticasone/Vilanterol [Breo 1 puff INH DAILY 05/08/17 06/01/17 History Ellipta 100-25 Mcg INH] Omeprazole 40 mg PO QPM 05/08/17 06/01/17 History Allergies Allergy/AdvReac Type Severity Reaction Status Date / Time No Known Allergies Allergy Verified 06/01/17 18:34 Medical,Surgical,& Family Hx - Medical History Cardio: History of: Hypertension Endocrine: No history of: Diabetes Mellitus (IDDM), Diabetes Mellitus (NIDDM) Rheumatology: History of;: Rheumatoid Arthritis Respiratory: History of: COPD, Respiratory Problems ("Rheumatoid lung") Renal: No history of: Renal Failure, Renal Problems Genitourinary: History of: Bladder Problem (incontinence since prostatectomy), Prostate Problems, Genitourinary Cancer (prostate CA) No history of: Kidney Stones Gastrointestinal: No history of: Gastrointestinal Bleed, Liver Problems, GI Problems Musculoskeletal: History of: Musculoskeletal Problems (Cjaxwhx-Wjtls-Fbvts lower extremities) Other: History of: Cancer (LEUKEMIA) - Surgical History Reproductive Surgeries: Surgical HX of;: Prostate Surgery (prostatectomy for prostate CA) - Family History Family History: Reports;: Family Cancer (mother-colon and throat/ brother-lung) , Family Hypertension Denies;: Family Diabetes, Family Heart Disease, Family Psychiatric Problems, Family Stroke - Social History Smoking Status: Current every day smoker Frequency of Alcohol Use: None Type of Drug Use: None - Constitutional Constitutional: Present: chills, fatigue, fever(s), malaise, night sweats, weakness. Absent: increased appetite, weight gain - EENT Eye: Absent: loss of vision Ears: Absent: ear discharge, ear pain Nose, mouth and throat: Absent: neck mass, neck pain, odynophagia, sore throat - Cardiovascular Cardiovascular ROS IM: Absent: edema, orthopnea - Respiratory Respiratory: Present: cough, dyspnea. Absent: hemoptysis - Gastrointestinal Gastrointestinal: Present: constipation. Absent: cramping, diarrhea - Genitourinary Genitourinary ROS male: Absent: dysuria - Hematologic/Lymphatic Hematologic/Lymphatic: Absent: easy bleeding Exam - Constitutional Vitals: Period Temp Pulse Resp BP Sys/Jaquez Pulse Ox Last 24 Hr 98.2 F-101.8 F 88-126 17-91 94-120/37-62 91-100 General appearance: mild distress, other (Poor dentition) - Head Head Exam: Present: normocephalic, atraumatic - Eye Eye Exam: Present: EOMI. Absent: conjunctival injection, periorbital swelling, scleral icterus - ENT ENT exam: Present: normal external ear exam - Neck Neck exam: Present: normal inspection. Absent: lymphadenopathy - Respiratory Respiratory exam: Present: CTAB. Absent: accessory muscle use, chest wall tenderness, wheezes - Cardiovascular Cardiovascular exam: Present: RRR. Absent: bradycardia - GI/Abdominal GI/Abdominal exam: Absent: ascites, distended, firm, guarding - Neurological Exam Neurological exam: Present: alert, oriented X3 - Skin Skin exam: Present: warm, dry Results - Labs CBC & BMP: 06/02/17 04:34 06/02/17 04:34
[2017-06-03 02:21] LABS: Eosinophils % 2.9 % (0.00-10.9); Hematocrit 26.1 VOL% (42.0-52.0); Immature Granulocytes % 2.9 %; Immature Granulocytes Absolute 0.01 #; Lymphocytes # 0.2 10*3/uL (1.4-4.0); Mean Corpuscular HGB Conc 33.7 GM/DL (32-36); Mean Corpuscular Hemoglobin 32 PG (27-34); Mean Corpuscular Volume 94.9 FL (87-102); Mean Platelet Volume 9.8 FL (9.6-12.0); Monocytes # 0.1 10*3/uL (0.11-0.8); Neutrophils # 0.1 10*3/uL (1.4-7.4); Neutrophils % 14.2 % (38.7-73.9); Platelet Count 88 T/CUMM (130-400); Red Blood Count 2.75 MC/CUMM (3.8-5.5); Red Cell Distribution Width 18.6 % (9.3-17.3)
[2017-06-03 02:46] LABS: Hemoglobin 8.8 GM/DL (14.0-18.0); White Blood Count 0.4 T/CUMM (4-12)
[2017-06-03 03:22] LABS: Anisocytosis 1+; Band Neutrophils 5 % (0-10); Eosinophils 5 % (0-10); Lymphocytes 73 % (20-55); Macrocytosis 1+; Platelet Estimate Decreased; Polychromasia Few; Segmented Neutrophils 5 % (50-85); Total Cells Counted 102
[2017-06-03] MEDS: MEROPENEM 1,000 MG in SODIUM CHLORIDE 0.9% 100 ML IV SCH ×3 (06:39→23:25)
[2017-06-03] MEDS: ALPRAZolam 0.25 MG TABLET PO PRN ×2 (08:33→18:07)
--- NOTE | 2017-06-03 09:03 | Oncology Progress Note ---
Assessment and Plan (1) Acute myelogenous leukemia Status: Acute Assessment and plan: Patient will need aggressive antibiotics for pneumonia. Proceed with 2 units of packed red blood cells today. Current Visit: Yes Oncology Subjective PN Interval history: Patient with rheumatoid arthritis, AML, as well as fever pneumonia and UTI. His breath sounds are equal bilaterally on anterior auscultation. His O2 saturations are approximately 96% though he is wearing 2 L cannula. The patient is unable to ambulate due to his joint dysfunction. 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 Continuing broad- spectrum antibiotics. He received blood transfusion yesterday. His platelets are acceptable though he has severe leukopenia. He was scheduled for second course of chemotherapy next week though this does not dictate our current management. Unfortunately I believe his prognosis remains poor. I will continue with aggressive care at this time Exam - Constitutional Vitals: Period Temp Pulse Resp BP Sys/Jaquez Pulse Ox Last 24 Hr 79.5 F-100.0 F 89-101 18-91 96-132/43-63 94-96 Results - Labs CBC & BMP: 06/03/17 01:20 06/02/17 04:34
--- NOTE | 2017-06-03 10:50 | Physician Query Form ---
CLICK EDIT DOCUMENT TO SELECT QUERY ANSWER --> OK --> SIGN Kendal Sinclair RN Clinical Assistant Front Office Manager W) [phone] (f) [phone] [email or web address] PROVIDERS: Make your selection(s) from the choices in EACH section by typing an "x" and enter comments in the comment section. Please use your independent medical judgment in providing your response. This request does not imply that any particular answer is desired or expected. 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 ( x) Malnutrition ( ) mild (x ) moderate ( ) severe ( ) Protein calorie malnutrition ( ) mild ( ) moderate ( ) severe ( ) Emaciation due to malnutrition ( ) Nutritional marasmus ( ) Cachexia ( ) Underweight ( ) No nutritional deficiency ( ) Other, please specify: ( ) Clinically unable to determine Mild Malnutrition (BMI < 18.5, % Normal Body Weight 85-95%) Moderate Malnutrition (BMI < 17, % Normal Body Weight 75-85%) Severe Malnutrition (BMI < 16, % Normal Body Weight < 75%) Source: Eloisa COMMENTS: PLEASE ALSO DOCUMENT RESPONSE IN PROGRESS NOTES AND/OR DISCHARGE SUMMARY Use of terms such as suspected, likely, or probable (associated with a specific diagnosis that is being evaluated, monitored, or treated as if it exists) are acceptable and can be restated in the discharge summary if not ruled out. MTDD
[2017-06-03] MEDS: SODIUM CHLORIDE 0.9% 1,000 ML IV SCH (11:19)
[2017-06-03] MEDS: CITALOPRAM 20 MG TABLET PO SCH (20:54)
[2017-06-03] MEDS: PANTOPRAZOLE 40 MG TABLET PO SCH (20:54)
[2017-06-03] MEDS: DESITIN 4OZ/NYSTATIN 15 GRAM MIXTURE PASTE TOP SCH (20:56)
[2017-06-04] MEDS: MEROPENEM 1,000 MG in SODIUM CHLORIDE 0.9% 100 ML IV SCH ×3 (06:02→22:51)
[2017-06-04] MEDS: SODIUM CHLORIDE 0.9% 1,000 ML IV SCH ×3 (06:03→23:34)
--- NOTE | 2017-06-04 07:54 | XRay Report ---
History is follow-up pneumonia Comparison 06/02/2017 The heart is normal in size. A 5 cm rounded infiltrate in the lateral left mid chest remains with diffuse bilateral reticular nodular pulmonary opacities and the patchy lucencies in the upper lung zones again seen Impression: There are continued diffuse interstitial and more focal left lung infiltrates superimposed on chronic changes. Continued follow-up until clear is necessary PROCEDURE INTERPRETED AT [facility] DEPARTMENT OF RADIOLOGY Final Report Signed by: Dr. Justyna Colmenares
[2017-06-04] MEDS: DESITIN 4OZ/NYSTATIN 15 GRAM MIXTURE PASTE TOP SCH ×2 (08:46→20:25)
--- NOTE | 2017-06-04 08:52 | Oncology Progress Note ---
Assessment and Plan (1) Acute myelogenous leukemia Status: Acute Assessment and plan: Patient will need aggressive antibiotics for pneumonia. Proceed with 2 units of packed red blood cells today. Current Visit: Yes Oncology Subjective PN Interval history: Patient with acute myelogenous leukemia admitted with fever. E. coli UTIs noted. Patient also has left midlung infiltrate. I believe he has some underlying obstructive lung disease and also may have some contribution from rheumatoid arthritis. I am looking at his chest x-ray now and his heart size is normal and his lung bases are clear. Trachea is midline. He is complaining of hemorrhoid pain with supportive medicines to be ordered. No CBC is available today but this will be followed up tomorrow. Exam - Constitutional Vitals: Period Temp Pulse Resp BP Sys/Jaquez Pulse Ox Last 24 Hr 98.0 F-99.1 F 75-96 18-24 103-148/55-69 95-99 Results - Labs CBC & BMP: 06/03/17 01:20 06/02/17 04:34
[2017-06-04] MEDS: ALBUTEROL/IPRATROPIUM 3 ML NEB RESP TX SCH ×2 (10:13→20:32)
[2017-06-04] MEDS: PRAMOXINE/HYDROCORTISONE RECTAL FOAM 10 GM CAN TOP PRN (18:58)
[2017-06-04] MEDS: ACETAMINOPHEN/CODEINE 300-30 MG TABLET PO PRN (20:23)
[2017-06-04] MEDS: TEMAZEPAM 7.5 MG CAPSULE PO PRN (20:23)
[2017-06-04] MEDS: PANTOPRAZOLE 40 MG TABLET PO SCH (20:24)
[2017-06-04] MEDS: CITALOPRAM 20 MG TABLET PO SCH (20:24)
[2017-06-05] MEDS: ALPRAZolam 0.25 MG TABLET PO PRN (03:40)
[2017-06-05 05:54] LABS: Eosinophils % 1.9 % (0.00-10.9); Hematocrit 23.3 VOL% (42.0-52.0); Hemoglobin 7.7 GM/DL (14.0-18.0); Lymphocytes # 0.4 10*3/uL (1.4-4.0); Lymphocytes % 69.2 % (21.2-54.2); Mean Corpuscular Hemoglobin 32 PG (27-34); Mean Corpuscular Volume 97.1 FL (87-102); Mean Platelet Volume 9.7 FL (9.6-12.0); Monocytes # 0.1 10*3/uL (0.11-0.8); Monocytes % 21.2 % (1.7-12.7); Neutrophils % 7.7 % (38.7-73.9); Platelet Count 81 T/CUMM (130-400); Red Cell Distribution Width 18.7 % (9.3-17.3)
[2017-06-05 05:59] LABS: White Blood Count 0.5 T/CUMM (4-12)
[2017-06-05] MEDS: MEROPENEM 1,000 MG in SODIUM CHLORIDE 0.9% 100 ML IV SCH ×3 (05:59→23:09)
[2017-06-05 06:22] LABS: Eosinophils 10 % (0-10); Lymphocytes 70 % (20-55); Segmented Neutrophils 10 % (50-85); Total Cells Counted 100
[2017-06-05 06:23] LABS: Hypochromasia 1+; Microcytosis 1+; Platelet Estimate Decreased
[2017-06-05 06:32] LABS: Albumin 1.8 G/DL (3.4-5.0); Bilirubin,Total 0.4 MG/DL (0.2-1.0); Calcium 7.7 MG/DL (8.5-10.1); Potassium 3.8 MMOL/L (3.5-5.1); Total Protein 4.3 G/DL (6.4-8.3)
[2017-06-05] MEDS: ALBUTEROL/IPRATROPIUM 3 ML NEB RESP TX SCH ×2 (07:45→19:16)
--- NOTE | 2017-06-05 09:20 | Oncology Progress Note ---
Assessment and Plan (1) Acute myelogenous leukemia Status: Acute Assessment and plan: Patient will need aggressive antibiotics for pneumonia. Proceed with 2 units of packed red blood cells today. Current Visit: Yes Oncology Subjective PN Interval history: Mr. Eastman seems slightly improved. He is breathing a little better perhaps due to the nebulized albuterol treatments. He is still reporting significant hemorrhoidal pain and there is what appears to be a thrombosed hemorrhoid at the 8 o'clock position of the anus. I see no evidence of purulence or active infection. Continue topical care for this. Continuing antibiotics for UTI and pneumonia with acute myelogenous leukemia as his predominant underlying disorder Exam - Constitutional Vitals: Period Temp Pulse Resp BP Sys/Jaquez Pulse Ox Last 24 Hr 97.0 F-99.2 F 76-92 16-20 103-120/51-58 96-100 Results - Labs CBC & BMP: 06/05/17 05:30 06/05/17 05:30
[2017-06-05] MEDS: MAGNESIUM HYDROXIDE SUSP 30 ML UDCUP PO PRN (09:24)
[2017-06-05] MEDS: PRAMOXINE/HYDROCORTISONE RECTAL FOAM 10 GM CAN TOP PRN ×2 (09:25→20:00)
[2017-06-05] MEDS: DESITIN 4OZ/NYSTATIN 15 GRAM MIXTURE PASTE TOP SCH ×2 (09:25→20:07)
[2017-06-05] MEDS: PANTOPRAZOLE 40 MG TABLET PO SCH ×2 (19:58→20:07)
[2017-06-05] MEDS: CITALOPRAM 20 MG TABLET PO SCH ×2 (19:59→20:07)
[2017-06-05] MEDS: SODIUM CHLORIDE 0.9% 1,000 ML IV SCH (23:08)
[2017-06-06 05:40] LABS: Eosinophils % 2.6 % (0.00-10.9); Hematocrit 24.8 VOL% (42.0-52.0); Hemoglobin 8.3 GM/DL (14.0-18.0); Lymphocytes # 0.3 10*3/uL (1.4-4.0); Lymphocytes % 79.5 % (21.2-54.2); Mean Corpuscular HGB Conc 33.5 GM/DL (32-36); Mean Corpuscular Hemoglobin 32 PG (27-34); Mean Corpuscular Volume 95.8 FL (87-102); Mean Platelet Volume 9.3 FL (9.6-12.0); Monocytes # 0.1 10*3/uL (0.11-0.8); Monocytes % 15.4 % (1.7-12.7); Neutrophils % 2.5 % (38.7-73.9); Platelet Count 92 T/CUMM (130-400); Red Blood Count 2.59 MC/CUMM (3.8-5.5); Red Cell Distribution Width 18.6 % (9.3-17.3)
[2017-06-06 05:47] LABS: White Blood Count 0.4 T/CUMM (4-12)
[2017-06-06 06:06] LABS: Anisocytosis 2+; Lymphocytes 86 % (20-55); Platelet Estimate Decreased; Polychromasia Slight; Total Cells Counted 100
[2017-06-06 06:15] LABS: Albumin 1.9 G/DL (3.4-5.0); Bilirubin,Total 0.5 MG/DL (0.2-1.0); Calcium 7.7 MG/DL (8.5-10.1); Magnesium 1.9 MG/DL (1.8-2.4); Osmolality,Calculated 279.3 MOS/KG (273-304); Potassium 3.8 MMOL/L (3.5-5.1); Total Protein 4.9 G/DL (6.4-8.3)
[2017-06-06] MEDS: MEROPENEM 1,000 MG in SODIUM CHLORIDE 0.9% 100 ML IV SCH ×3 (07:08→22:53)
[2017-06-06] MEDS: ALBUTEROL/IPRATROPIUM 3 ML NEB RESP TX SCH ×2 (07:51→19:07)
[2017-06-06] MEDS: DESITIN 4OZ/NYSTATIN 15 GRAM MIXTURE PASTE TOP SCH ×2 (09:05→20:27)
--- NOTE | 2017-06-06 15:01 | Oncology Progress Note ---
Assessment and Plan (1) Acute myelogenous leukemia Status: Acute Assessment and plan: Patient will need aggressive antibiotics for pneumonia. Proceed with 2 units of packed red blood cells today. Current Visit: Yes Oncology Subjective PN Interval history: The patient appears stable. He is still having pain in the butt secondary to hemorrhoids. He is not a surgical candidate given his neutropenia. His respiratory status seems to be gradually improving and his lungs are clear to bilateral auscultation. Abdomen is soft nontender. The patient declines attempts at skilled nursing placement and states he is well cared for at home by friends of his. He also mentioned did dysphagia and we may need to consult GI as he reports a history of esophageal stricture Exam - Constitutional Vitals: Period Temp Pulse Resp BP Sys/Jaquez Pulse Ox Last 24 Hr 97.2 F-99 F 75-108 18-28 112-135/46-63 93-99 Results - Labs CBC & BMP: 06/06/17 05:16 06/06/17 05:16
[2017-06-06] MEDS: ALPRAZolam 0.25 MG TABLET PO PRN (15:38)
[2017-06-06] MEDS: ALBUTEROL/IPRATROPIUM 3 ML NEB RESP TX PRN (15:48)
[2017-06-06] MEDS: SODIUM CHLORIDE 0.9% 1,000 ML IV SCH ×2 (17:42→19:33)
[2017-06-06] MEDS: CITALOPRAM 20 MG TABLET PO SCH (20:27)
[2017-06-06] MEDS: PANTOPRAZOLE 40 MG TABLET PO SCH (20:27)
[2017-06-07] MEDS: ALPRAZolam 0.25 MG TABLET PO PRN ×4 (03:28→21:44)
[2017-06-07] MEDS: ALBUTEROL/IPRATROPIUM 3 ML NEB RESP TX PRN (03:28)
[2017-06-07 05:24] LABS: Eosinophils % 3.1 % (0.00-10.9); Hematocrit 23.7 VOL% (42.0-52.0); Hemoglobin 7.8 GM/DL (14.0-18.0); Immature Granulocytes % 3.1 %; Immature Granulocytes Absolute 0.01 #; Lymphocytes # 0.2 10*3/uL (1.4-4.0); Lymphocytes % 62.5 % (21.2-54.2); Mean Corpuscular HGB Conc 32.9 GM/DL (32-36); Mean Corpuscular Hemoglobin 32 PG (27-34); Mean Corpuscular Volume 96.3 FL (87-102); Mean Platelet Volume 9.5 FL (9.6-12.0); Monocytes # 0.1 10*3/uL (0.11-0.8); Monocytes % 28.1 % (1.7-12.7); Neutrophils % 3.2 % (38.7-73.9); Platelet Count 87 T/CUMM (130-400); Red Blood Count 2.46 MC/CUMM (3.8-5.5); Red Cell Distribution Width 18.6 % (9.3-17.3)
[2017-06-07 05:34] LABS: White Blood Count 0.3 T/CUMM (4-12)
[2017-06-07 05:59] LABS: Albumin 1.9 G/DL (3.4-5.0); Bilirubin,Total 0.5 MG/DL (0.2-1.0); Calcium 7.8 MG/DL (8.5-10.1); Magnesium 2.1 MG/DL (1.8-2.4); Potassium 3.4 MMOL/L (3.5-5.1); Total Protein 4.7 G/DL (6.4-8.3)
[2017-06-07 06:08] LABS: Eosinophils 13 % (0-10); Lymphocytes 67 % (20-55); Myelocytes 7 %; Total Cells Counted 100
[2017-06-07 06:09] LABS: Anisocytosis 1+; Hypochromasia 1+; Platelet Estimate Decreased
[2017-06-07] MEDS: MEROPENEM 1,000 MG in SODIUM CHLORIDE 0.9% 100 ML IV SCH ×2 (06:22→16:08)
[2017-06-07] MEDS: ALBUTEROL/IPRATROPIUM 3 ML NEB RESP TX SCH ×2 (07:54→20:01)
[2017-06-07] MEDS: SODIUM CHLORIDE 0.9% 1,000 ML IV SCH (10:23)
--- NOTE | 2017-06-07 10:53 | Oncology Progress Note ---
Assessment and Plan (1) Acute myelogenous leukemia Status: Acute Assessment and plan: Patient will need aggressive antibiotics for pneumonia. Proceed with 2 units of packed red blood cells today. Current Visit: Yes Oncology Subjective PN Interval history: Patient with AML continuing treatment for UTI and pneumonia. The patient is stable at this time. I have suggested and he has declined correction placement as she is nonambulatory and heavily reliant upon others. He adamantly states that he has personal friends who care for him. We did discuss physical therapy to see tomorrow as he has been in bed this entire hospitalization. I think he is close to discharge within 24-48 hours. Exam - Constitutional Vitals: Period Temp Pulse Resp BP Sys/Jaquez Pulse Ox Last 24 Hr 97.5 F-99.2 F 88-98 18-24 98-125/46-70 92-99 Results - Labs CBC & BMP: 06/07/17 05:03 06/07/17 05:03
[2017-06-07] MEDS: DESITIN 4OZ/NYSTATIN 15 GRAM MIXTURE PASTE TOP SCH ×2 (12:00→21:06)
[2017-06-07] MEDS: PANTOPRAZOLE 40 MG TABLET PO SCH (21:05)
[2017-06-07] MEDS: TEMAZEPAM 7.5 MG CAPSULE PO PRN (21:05)
[2017-06-07] MEDS: CITALOPRAM 20 MG TABLET PO SCH (21:05)
[2017-06-08] MEDS: MEROPENEM 1,000 MG in SODIUM CHLORIDE 0.9% 100 ML IV SCH ×3 (00:08→18:38)
[2017-06-08] MEDS: ALBUTEROL/IPRATROPIUM 3 ML NEB RESP TX PRN (02:04)
[2017-06-08 06:26] LABS: Hematocrit 23.7 VOL% (42.0-52.0); Hemoglobin 7.7 GM/DL (14.0-18.0); Lymphocytes # 0.2 10*3/uL (1.4-4.0); Lymphocytes % 65.6 % (21.2-54.2); Mean Corpuscular HGB Conc 32.5 GM/DL (32-36); Mean Corpuscular Hemoglobin 32 PG (27-34); Mean Corpuscular Volume 97.5 FL (87-102); Mean Platelet Volume 9.6 FL (9.6-12.0); Monocytes # 0.1 10*3/uL (0.11-0.8); Monocytes % 28.1 % (1.7-12.7); Neutrophils % 6.3 % (38.7-73.9); Red Blood Count 2.43 MC/CUMM (3.8-5.5); Red Cell Distribution Width 18.4 % (9.3-17.3)
[2017-06-08 06:30] LABS: Platelet Count 91 T/CUMM (130-400); White Blood Count 0.3 T/CUMM (4-12)
[2017-06-08 06:54] LABS: Hypochromasia 1+; Lymphocytes 73 % (20-55); Segmented Neutrophils 7 % (50-85); Total Cells Counted 100
[2017-06-08 06:55] LABS: Macrocytosis 1+; Platelet Estimate Decreased
[2017-06-08] MEDS: ALBUTEROL/IPRATROPIUM 3 ML NEB RESP TX SCH ×2 (07:47→19:54)
--- NOTE | 2017-06-08 08:53 | Discharge Summary ---
Hospital Course - Hospital Course Hospital Course: Patient with acute myelogenous leukemia admitted with fever and possible pulmonary infiltrates. He is found to have E. coli urinary tract infection. He will receive 2 units of red blood cells today. He was scheduled for outpatient chemotherapy due to the infectious complications this will be rescheduled until next week. I have discussed jail placement with the patient as he is bedbound nonambulatory and basically total care. He has declined my advances regarding this. He is requiring O2 and is felt to have a history of chronic lung disease secondary to rheumatoid arthritis. I will have him evaluated him for home O2 today prior to discharge. Diagnosis - Discharge Diagnosis (1) Acute myelogenous leukemia Status: Acute Discharge Plan - Discharge Medications Continue Acetaminophen with Codeine [Acetaminophen-Cod #4 Tablet] 1 each PO Q6H PRN PRN Reason: Pain Citalopram [CeleXA] 20 mg PO BEDTIME Albuterol Inhaler [Proventil Inhaler] 2 puff INH Q6H PRN #2 inhaler PRN Reason: Shortness Of Breath/Wheezing Fluticasone/Vilanterol [Breo Ellipta 100-25 Mcg INH] 1 puff INH DAILY Omeprazole 40 mg PO QPM - Follow Up or Referral - Forms/Instructions Exam - Constitutional Vitals: Period Temp Pulse Resp BP Sys/Jaquez Pulse Ox Last 24 Hr 97.4 F-99.3 F 78-110 18-26 108-142/56-79 93-99 Discharge Results Labs on day of discharge: Labs from last 24 hours 06/08/17 05:09 WBC 0.3 L* RBC 2.43 L Hgb 7.7 L Hct 23.7 L MCV 97.5 MCH 32 MCHC 32.5 RDW 18.4 H Plt Count 91 L MPV 9.6 Neut % (Auto) 6.3 L Lymph % (Auto) 65.6 H [place] % (Auto) 28.1 H Eos % (Auto) 0.0 Baso % (Auto) 0.0 Neut # (Auto) 0.0 L Lymph # (Auto) 0.2 L [place] # (Auto) 0.1 L Eos # (Auto) 0.0 Baso # (Auto) 0.0 Total Counted 100 Immature Gran % 0.0 Nucleated RBC % 0.0 Immature Gran # 0.00 Segmented Neutrophils 7 L Lymphocytes 73 H Monocytes 20 H Nucleated RBCs # 0.00 Platelet Estimate Decreased Hypochromasia 1+ Macrocytosis 1+ DS: Provider Date of admission: 06/01/17 21:11 Primary care physician: . No PCP Attending physician on admission: Abiel Hardy MD Consults: 06/01/17 23:11 Consult to Dietitian [CONS] Routine Reason for Dietitian: Diet Instruction Consult to Pastoral Services [CONS] Routine Comment: Pastoral Screen: Request Platen Press Feeder Visit Pastoral Screen Source of Request: Patient Discharging clinician: Abiel Hardy MD
[2017-06-08] MEDS ORDERED: SODIUM CHLORIDE 0.9% 250 ML IV PRN (08:56)
[2017-06-08] MEDS: DESITIN 4OZ/NYSTATIN 15 GRAM MIXTURE PASTE TOP SCH (11:20)
--- NOTE | 2017-06-08 11:42 | Physician Query Form ---
CLICK EDIT DOCUMENT TO SELECT QUERY ANSWER --> OK --> SIGN Kendal Sinclair RN Clinical Comb Winder W) [phone] (f) [phone] [email or web address] PROVIDERS: Make your selection(s) from the choices in EACH section by typing an "x" and enter comments in the comment section. Please use your independent medical judgment in providing your response. This request does not imply that any particular answer is desired or expected. CLINICAL INDICATORS: (Providers should not edit this section) Pt. has a history of COPD and ""Rheumatoid lung". Based on documentation of "He is requiring O2 and is felt to have a history of chronic lung disease secondary to rheumatoid arthritis". Based on the above, could you clarify the appropriate diagnosis, if significant , that supports the above abnormalities and additional evaluation, monitoring, and/or treatment rendered: ( x) Pt. has chronic respiratory failure ( ) Pt. does not have chronic respiratory failure ( ) Other, please specify: ( ) Clinically unable to determine COMMENTS: PLEASE ALSO DOCUMENT RESPONSE IN PROGRESS NOTES AND/OR DISCHARGE SUMMARY Use of terms such as suspected, likely, or probable (associated with a specific diagnosis that is being evaluated, monitored, or treated as if it exists) are acceptable and can be restated in the discharge summary if not ruled out. MTDD
[2017-06-08] MEDS: ALPRAZolam 0.25 MG TABLET PO PRN ×2 (16:18→19:44)
[2017-06-08] MEDS: SODIUM CHLORIDE 0.9% 1,000 ML IV SCH (18:39)
[2017-06-08] MEDS: ACETAMINOPHEN/CODEINE 300-30 MG TABLET PO PRN (19:25)
[2017-06-08 20:45] VITALS: BP 152/82
== END 2017-06-08 20:45 | disposition home health service (06) | DRG 190 ==
LOC: N.ED 18:19 → N.EDINP 21:11 → N.4E 21:59
PROVIDERS: ADMIT Specialist; ATTEND Specialist

== ENCOUNTER 2017-06-17 01:21 | Inpatient (IN) ==
[2017-06-17] MEDS ORDERED: ACETAMINOPHEN 500 MG TABLET ONE (02:04)
[2017-06-17] MEDS ORDERED: cefTRIAXone 1,000 MG VIAL ONE (02:07)
[2017-06-17] MEDS ORDERED: SODIUM CHLORIDE 0.9% 100 ML IV ONE (02:07)
[2017-06-17] MEDS ORDERED: MEROPENEM 1,000 MG VIAL IV ONE (02:07)
[2017-06-17] MEDS ORDERED: VANCOMYCIN 1,000 MG VIAL ONE (02:07)
[2017-06-17] MEDS ORDERED: methylPREDNISolone SOD SUC 125 MG/2 ML VIAL IV STA (02:27)
[2017-06-17] MEDS ORDERED: ALBUTEROL/IPRATROPIUM 3 ML NEB RESP TX STA (02:27)
[2017-06-17] MEDS ORDERED: SODIUM CHLORIDE 0.9% 1,950 ML IV ONE (02:27)
[2017-06-17] MEDS ORDERED: MEROPENEM 1,000 MG in SODIUM CHLORIDE 0.9% 100 ML IV SCH (02:30)
[2017-06-17] MEDS ORDERED: SODIUM CHLORIDE 0.9% 1,000 ML IV SCH (02:30)
[2017-06-17 02:39] LABS: Hematocrit 34.1 VOL% (42.0-52.0); Hemoglobin 11.8 GM/DL (14.0-18.0); Lymphocytes # 0.1 10*3/uL (1.4-4.0); Mean Corpuscular HGB Conc 34.6 GM/DL (32-36); Mean Corpuscular Hemoglobin 32 PG (27-34); Mean Corpuscular Volume 92.4 FL (87-102); Mean Platelet Volume 9.8 FL (9.6-12.0); Monocytes # 0.1 10*3/uL (0.11-0.8); Monocytes % 46.7 % (1.7-12.7); Neutrophils % 13.3 % (38.7-73.9); Red Blood Count 3.69 MC/CUMM (3.8-5.5); Red Cell Distribution Width 18.5 % (9.3-17.3)
[2017-06-17 02:42] LABS: ABG HCO3 26.1 MMOL/L (20-26); ABG Oxygen Saturation 96.5 % (95-100); ABG PCO2 36.7 MM HG (35-48); ABG PH 7.454 (7.35-7.45); ABG PO2 81.4 MM HG (80-95); ABG TCO2 23.8 MMOL/L (23-27)
[2017-06-17 02:44] LABS: Platelet Count 68 T/CUMM (130-400)
[2017-06-17 02:46] LABS: White Blood Count 0.2 T/CUMM (4-12)
[2017-06-17 02:50] LABS: INR 1.5; PT Patient Result 16.6 SECS; Partial Thromboplastin Time 38.4 SECS (0-40)
[2017-06-17 03:01] LABS: Albumin 2.2 G/DL (3.4-5.0); Bilirubin,Total 0.8 MG/DL (0.2-1.0); Osmolality,Calculated 266.4 MOS/KG (273-304); Potassium 3.8 MMOL/L (3.5-5.1); Total Protein 5.9 G/DL (6.4-8.3)
[2017-06-17 03:04] LABS: Lactic Acid 3.2 MMOL/L (0.4-2.0)
--- NOTE | 2017-06-17 03:08 | Emergency Department Note ---
[place] Brooke, am scribing for, and in the presence of, Akira Molina MD 02 :40. [place] Charles R, MD, personally performed the services described in this documentation, ascribed by Mellissa Cuellar in my presence, and it is both accurate and complete . Arrival - Arrival Chief Complaint: Shortness of Breath Stated Complaint: SOB ED Nursing Triage Note: Pt c c/o SOB with worsening this evening per EMS. DC'd last week with diagnosis of pneumonia. completed ABX at home on today. +wheezing ; increased WOB. Albuterol neb tx given in route. Temp 101.9. Accuchek 99mg/dL. +cough nonproductive. 12 lead EKG no STEMI. ST on CM 115-120s. 2L O2 via NC daily. Hx of Leukemia. Last chemo tx on today-po. Mode of Arrival: Stretcher Limitations: Altered Mental Status Source: Patient, Family (Daughter), EMS, RN Notes Reviewed Time Seen by Provider: 06/17/17 01:35 - History of Present Illness HPI Narrative: Patient is a 72 year old male brought into the ED by EMS with c/o altered mental status and respiratory distress. Patient has leukemia and received his chemotherapy "shot" yesterday. Daughter says Patient slept all evening, yesterday, after receiving the shot and after waking up he was confused and "grabbing for things." Daughter says Patient has also had some "jerking" movement since waking up, that is new. Patient was diagnosed with pneumonia, last week, and finished taking the abx yesterday. He currently has a fever of 101.7. He states that it is "hard to breathe." Daughter says Patient has been drinking and urinating "a lot." Patient also has PMHx of HTN, RA, COPD, "rheumatoid lung", and prostate cancer. Patient has home oxygen. He is no longer a smoker. Daughter says Patient was given six months to a year and his is currently only receiving the chemo as palliative care. He does have a home health nurse that sees him but does not have hospice. Patient and Daughter states Patient is DNR and they do not want him to be intubated. His Oncologist is Dr. Hardy. Allergies/Adverse Reactions: Allergies Allergy/AdvReac Type Severity Reaction Status Date / Time No Known Allergies Allergy Verified 06/01/17 18:34 Home Medications: Home Medications Medication Instructions Recorded Confirmed Type Acetaminophen with Codeine 1 each PO Q6H PRN 08/27/15 06/16/17 History [Acetaminophen-Cod #4 Tablet] Citalopram [CeleXA] 20 mg PO BEDTIME 04/15/16 06/16/17 History Albuterol Inhaler [Proventil 2 puff INH Q6H PRN #2 inhaler 04/20/16 06/16/17 Rx Inhaler] Fluticasone/Vilanterol [Breo 1 puff INH DAILY 05/08/17 06/16/17 History Ellipta 100-25 Mcg INH] Omeprazole 40 mg PO QPM 05/08/17 06/16/17 History Amoxicillin/Clav Tab [Augmentin 875 mg PO BID 06/08/17 06/16/17 History Tab] Review of System - Review of System ROS unobtainable: due to mental status 12 point system: reviewed and no additional remarkable complaints except as stated - Review of System Constitutional: Present: diaphoresis, fever Respiratory: Present: respiratory distress Skin: Absent: rash Medical,Surgical,& Family Hx - Medical History Cardio: History of: Hypertension Endocrine: No history of: Diabetes Mellitus (IDDM), Diabetes Mellitus (NIDDM) Rheumatology: History of;: Rheumatoid Arthritis Respiratory: History of: COPD, Pneumonia, Respiratory Problems ("Rheumatoid lung ") Renal: No history of: Renal Failure, Renal Problems Genitourinary: History of: Bladder Problem (incontinence since prostatectomy), Prostate Problems, Genitourinary Cancer (prostate CA) No history of: Kidney Stones Gastrointestinal: No history of: Gastrointestinal Bleed, Liver Problems, GI Problems Musculoskeletal: History of: Musculoskeletal Problems (Gstbhld-Lwoyy-Vdakd lower extremities) Other: History of: Cancer (LEUKEMIA) - Surgical History Reproductive Surgeries: Surgical HX of;: Prostate Surgery (prostatectomy for prostate CA) - Family History Family History: Reports;: Family Cancer (mother-colon and throat/ brother-lung) , Family Hypertension Denies;: Family Diabetes, Family Heart Disease, Family Psychiatric Problems, Family Stroke - Social History Smoking Status: Current every day smoker Frequency of Alcohol Use: None Type of Drug Use: None Exam Vital Signs: Vital Signs Temperature 101.7 F H 06/17/17 01:21 Pulse Rate 120 H 06/17/17 02:25 Respiratory Rate 22 06/17/17 02:25 Blood Pressure 105/55 06/17/17 01:21 O2 Sat by Pulse Oximetry 91 L 06/17/17 02:25 - General General appearance: alert, in distress (respiratory), other (febrile) - Head Head exam: Present: atraumatic, normocephalic - Eye Eye exam: Present: other (Sunken orbits) - ENT ENT exam: Present: mucous membranes dry - Neck Neck exam: Present: normal inspection - Chest Chest inspection: Present: normal inspection, symmetric chest wall rise - Respiratory Respiratory exam: Present: accessory muscle use, respiratory distress, rhonchi ( diffuse), wheezes (diffuse), other (decreased breath sounds. Positive egophony test bilaterally.) - Cardiovascular Cardiovascular exam: Present: tachycardia, irregular rhythm, normal heart sounds - Abdominal Exam Abdominal exam: Present: soft, normal bowel sounds. Absent: distention, tenderness - Extremities Exam Extremities exam: Present: normal inspection - Back Exam Back exam: Present: normal inspection - Neurological Exam Neurological exam: Present: alert. Absent: oriented X3 (altered) - Psychiatric Psychiatric exam: Present: normal affect, normal mood - Skin Skin exam: Present: warm, intact, diaphoresis, other (poor skin turgor. Rigors.) . Absent: dry Course Course Narrative: Spoke to the patient and the family patient wants to become DNR status he wants medical treatment comfort care measures but does not want to be intubated. Patient is sick he is got AML with sepsis - Consultations Consultation #1: Dr Tenorio said admit to the ICU agrees with the treatment plan admit to Dr. Hardy patient is DNR Time: 03:48 Results - Labs CBC & BMP: 06/17/17 02:14 06/17/17 02:14 Lab Results: I have reviewed the patients labs Labs: Laboratory Tests 06/17/17 06/17/17 02:14 02:30 WBC 0.2 L* RBC 3.69 L Hgb 11.8 L Hct 34.1 L MCV 92.4 MCH 32 MCHC 34.6 RDW 18.5 H Plt Count 68 L MPV 9.8 Neut % (Auto) 13.3 L Lymph % (Auto) 40.0 [place] % (Auto) 46.7 H Eos % (Auto) 0.0 Baso % (Auto) 0.0 Neut # (Auto) 0.0 L Lymph # (Auto) 0.1 L [place] # (Auto) 0.1 L Eos # (Auto) 0.0 Baso # (Auto) 0.0 Immature Gran % 0.0 Nucleated RBC % 0.0 Immature Gran # 0.00 Nucleated RBCs # 0.00 Immature Plt Fraction 0.0 ABG pH 7.454 H ABG pCO2 36.7 ABG pO2 81.4 ABG HCO3 26.1 H ABG Total CO2 23.8 ABG O2 Saturation 96.5 ABG Base Excess 2.0 Laboratory Tests 06/17/17 06/17/17 02:14 02:14 INR 1.5 PT Patient/Control Mix 16.6 D Circ Anticoag PTT 38.4 Sodium 133 L Potassium 3.8 Chloride 94 L Carbon Dioxide 29 Anion Gap 13.8 BUN 16 Creatinine 0.90 GFR Calculation 90 BUN/Creatinine Ratio 17.00 Glucose 105 Calculated Osmolality 266.4 L Lactic Acid 3.2 H Calcium 8.0 L Total Bilirubin 0.80 AST 17 ALT 14 L Alkaline Phosphatase 57 Total Protein 5.9 L Albumin 2.2 L Globulin 3.7 H Albumin/Globulin Ratio 0.5 L Critical Care Time Critical Care Time: Yes Total Critical Care Time: 60 Disposition Clinical Impression: Leukopenia, UTI (urinary tract infection), Pancytopenia, Fever, Pneumonia, Acute myelogenous leukemia, Anemia, Sepsis Case discussed with: patient, patient's family Disposition: Still a Patient Condition: Critical Time of Disposition: 03:48
[2017-06-17] MEDS: NOREPINEPHRINE 8 MG in SODIUM CHLORIDE 0.9% 242 ML IV SCH ×2 (03:45→12:35)
[2017-06-17] MEDS ORDERED: methylPREDNISolone SOD SUC 125 MG/2 ML VIAL ONE (03:45)
[2017-06-17] MEDS: PIPERACILLIN/TAZOBACTAM 3,375 MG in SODIUM CHLORIDE 0.9% 100 ML IV SCH ×3 (03:49→18:24)
[2017-06-17] MEDS ORDERED: ACETAMINOPHEN 325 MG TABLET PO STA (03:58)
[2017-06-17 04:04] LABS: Apearance,Urine CLEAR (Clear); Bilirubin,Urine Negative (Negative); Blood, Urine Negative (Negative); Glucose,Urine (UA) Negative (Negative); Ketones,Urine Negative (Negative); Mucus,Urine Occasional /LPF (Occasional); Nitrite,Urine Negative (Negative); Protein,Urine 30 MG/DL; RBC,Urine 2 /HPF (0-4); Squamous Epithelial Cell,Urine Occasional /HPF (0-10); Urine Color Yellow (Yellow); Urine Specific Gravity 1.011 (1.001-1.035); Urine Urobilinogen < 2.0 EU/DL (0.2-1.0); WBC,Urine <1 /HPF (0-6)
[2017-06-17 04:42] LABS: Lymphocytes 52 % (20-55); Segmented Neutrophils 8 % (50-85)
[2017-06-17 04:43] LABS: Platelet Estimate Decreased
[2017-06-17 04:44] LABS: Polychromasia Few
[2017-06-17 04:45] LABS: Total Cells Counted 100
[2017-06-17 06:58] LABS: Calcium 7.6 MG/DL (8.5-10.1); Potassium 3.6 MMOL/L (3.5-5.1)
--- NOTE | 2017-06-17 07:08 | XRay Report ---
XR chest 1V portable Indication: Fever, pneumonia, respiratory distress Comparison: Chest x-ray dated June 04, 2017 Technique: Single frontal view of the chest. Findings: The cardiomediastinal silhouette is stable in configuration. Mildly improved left upper lung consolidation with mild residual remaining. There has been interval progressed mild atelectasis/consolidation within the bilateral lung bases. Recommend follow-up imaging to document resolution and exclude underlying neoplasm. Biapical scarring again demonstrated. Visualized osseous and surrounding soft tissue structures appear grossly unchanged. IMPRESSION: As above. PROCEDURE INTERPRETED AT [facility] DEPARTMENT OF RADIOLOGY Final Report Signed by: Dr Jarrett Riddle
[2017-06-17] MEDS ORDERED: ACETAMINOPHEN 325 MG TABLET ONE (07:46)
[2017-06-17] MEDS ORDERED: MAGNESIUM HYDROXIDE SUSP 30 ML UDCUP PO PRN (08:03)
[2017-06-17] MEDS ORDERED: ALBUTEROL/IPRATROPIUM 3 ML NEB RESP TX PRN (08:03)
[2017-06-17] MEDS ORDERED: ACETAMINOPHEN 325 MG TABLET PO PRN (08:03)
[2017-06-17] MEDS ORDERED: PIPERACILLIN/TAZOBACTAM 3,375 MG in SODIUM CHLORIDE 0.9% 100 ML IV SCH (08:03)
[2017-06-17] MEDS ORDERED: BENZTROPINE 2 MG/2 ML AMP IV PRN (08:03)
[2017-06-17] MEDS ORDERED: MYLANTA/LIDO VISC 2:1 300 ML BOTTLE SWISH/SPIT PRN (08:03)
[2017-06-17] MEDS ORDERED: LACTULOSE 20 GM/30 ML UDCUP PO PRN (08:03)
[2017-06-17] MEDS ORDERED: guaiFENesin 200 MG/10 ML UDCUP PO PRN (08:03)
[2017-06-17] MEDS ORDERED: MYLANTA/LIDO VISC 2:1 300 ML BOTTLE SWISH/SWAL PRN (08:03)
[2017-06-17] MEDS ORDERED: traMADol 50 MG TABLET PO PRN (08:03)
[2017-06-17] MEDS ORDERED: diphenhydrAMINE CAP 25 MG CAPSULE PO PRN (08:03)
[2017-06-17] MEDS ORDERED: LOPERAMIDE 2 MG CAPSULE PO PRN ×2 (08:03)
[2017-06-17] MEDS ORDERED: TEMAZEPAM 7.5 MG CAPSULE PO PRN (08:03)
[2017-06-17] MEDS ORDERED: chlorproMAZINE 25 MG TABLET PO PRN (08:03)
[2017-06-17 08:20] LABS: Albumin 2.2 G/DL (3.4-5.0); Bilirubin,Total 0.9 MG/DL (0.2-1.0); Calcium 8.1 MG/DL (8.5-10.1); Magnesium 1.5 MG/DL (1.8-2.4); Osmolality,Calculated 266.4 MOS/KG (273-304); Potassium 3.8 MMOL/L (3.5-5.1); Total Protein 6.2 G/DL (6.4-8.3); Uric Acid 4.9 MG/DL (3.5-7.2)
[2017-06-17] MEDS ORDERED: LEVOFLOXACIN INJ 150 ML IV ONE (08:49)
[2017-06-17] MEDS: LEVOFLOXACIN INJ 750 MG in PREMIX 1 EACH IV SCH (08:58)
[2017-06-17] MEDS: SODIUM CHLORIDE 0.9% 1,000 ML IV SCH ×3 (09:00→23:05)
--- NOTE | 2017-06-17 09:12 | Oncology History&Physical ---
Assessment and Plan (1) Acute myelogenous leukemia Status: Acute Assessment and plan: We will treat the patient with fluid resuscitation and IV antibiotics. High risk for infectious complications given long-standing neutropenia. DO NOT INTUBATE order in place with plans to pursue patient wishes of home hospice care. Current Visit: Yes History of Present Illness Chief complaint: Weakness History of present illness: Mr. Eastman is a 72 year old male With recently diagnosed acute myelogenous leukemia. The patient was hospitalized approximately 7-10 days ago. He had urinary tract infection as well as possible pneumonia at that time. His history is notable otherwise for rheumatoid arthritis. Charcot joint of the bilateral lower extremity, and chronic lung disease. The patient did receive cycle 2 day 1 by [facility] 2 days ago. He did not return for treatment yesterday. He did report being in the ER yesterday. He tells me rather readily this morning that he wishes to pursue hospice care. At this time he is requiring vasopressors to maintain adequate blood pressure and is awaiting an ICU bed for admission Home Medications Medication Instructions Recorded Confirmed Type Acetaminophen with Codeine 1 each PO Q6H PRN 08/27/15 06/16/17 History [Acetaminophen-Cod #4 Tablet] Citalopram [CeleXA] 20 mg PO BEDTIME 04/15/16 06/16/17 History Albuterol Inhaler [Proventil 2 puff INH Q6H PRN #2 inhaler 04/20/16 06/16/17 Rx Inhaler] Fluticasone/Vilanterol [Breo 1 puff INH DAILY 05/08/17 06/16/17 History Ellipta 100-25 Mcg INH] Omeprazole 40 mg PO QPM 05/08/17 06/16/17 History Amoxicillin/Clav Tab [Augmentin 875 mg PO BID 06/08/17 06/16/17 History Tab] Allergies Allergy/AdvReac Type Severity Reaction Status Date / Time No Known Allergies Allergy Verified 06/01/17 18:34 Medical,Surgical,& Family Hx - Medical History Cardio: History of: Hypertension Endocrine: No history of: Diabetes Mellitus (IDDM), Diabetes Mellitus (NIDDM) Rheumatology: History of;: Rheumatoid Arthritis Respiratory: History of: COPD, Pneumonia, Respiratory Problems ("Rheumatoid lung ") Renal: No history of: Renal Failure, Renal Problems Genitourinary: History of: Bladder Problem (incontinence since prostatectomy), Prostate Problems, Genitourinary Cancer (prostate CA) No history of: Kidney Stones Gastrointestinal: No history of: Gastrointestinal Bleed, Liver Problems, GI Problems Musculoskeletal: History of: Musculoskeletal Problems (Gsoseqj-Vbmvf-Zmwhe lower extremities) Other: History of: Cancer (LEUKEMIA) - Surgical History Reproductive Surgeries: Surgical HX of;: Prostate Surgery (prostatectomy for prostate CA) - Family History Family History: Reports;: Family Cancer (mother-colon and throat/ brother-lung) , Family Hypertension Denies;: Family Diabetes, Family Heart Disease, Family Psychiatric Problems, Family Stroke - Social History Smoking Status: Current every day smoker Frequency of Alcohol Use: None Type of Drug Use: None - Constitutional Constitutional: Present: fatigue, fever(s) - EENT Eye: Absent: blurry vision Ears: Absent: decreased hearing Nose, mouth and throat: Absent: dysphagia, epistaxis - Cardiovascular Cardiovascular ROS IM: Absent: chest pain - Respiratory Respiratory: Present: dyspnea. Absent: cough, hemoptysis - Genitourinary Genitourinary ROS male: Present: difficulty urinating (Moralez catheter in place) - Neurological Neurological ROS: Absent: behavioral changes, convulsions Exam - Constitutional Vitals: Period Temp Pulse Resp BP Sys/Jaquez Pulse Ox Last 24 Hr 98.8 F-101.7 F 120-132 22-32 105-105/55-55 85-91 General appearance: under weight (Moderate distress. He is requiring 40% O2) - Head Head Exam: Present: atraumatic - Eye Eye Exam: Present: EOMI. Absent: conjunctival injection, periorbital swelling, scleral icterus Pupils: Present: PERRL, normal accommodation - ENT ENT exam: Present: normal external ear exam - Neck Neck exam: Present: normal inspection. Absent: lymphadenopathy - Respiratory Respiratory exam: Absent: accessory muscle use, wheezes - Cardiovascular Cardiovascular exam: Present: RRR, tachycardia - GI/Abdominal GI/Abdominal exam: Absent: ascites, distended - Neurological Exam Neurological exam: Present: alert, oriented X3 - Psychiatric Psychiatric exam: Present: normal affect, normal mood - Skin Skin exam: Present: warm, dry Results - Labs CBC & BMP: 06/17/17 02:14 06/17/17 05:58 Quality Measures - VTE Contraindication to Pharmacological VTE Prophylaxis: Thrombocytopenia
[2017-06-17] MEDS ORDERED: MAGNESIUM SULF INJ 3 GM in SODIUM CHLORIDE 0.9% 100 ML IV ONE (10:30)
[2017-06-17 12:36] LABS: Apearance,Urine CLOUDY (Clear); Bilirubin,Urine Negative (Negative); Blood, Urine Small mg/dL (Negative); Glucose,Urine (UA) Negative (Negative); Ketones,Urine Negative (Negative); Mucus,Urine Occasional /LPF (Occasional); Nitrite,Urine Negative (Negative); Protein,Urine 100 MG/DL; RBC,Urine 3 /HPF (0-4); Urine Color Amber (Yellow); Urine Specific Gravity 1.017 (1.001-1.035); WBC,Urine 4 /HPF (0-6)
[2017-06-17] MEDS: methylPREDNISolone SOD SUC 40 MG/1 ML VIAL IV SCH ×2 (12:46→20:37)
[2017-06-17] MEDS: VANCOMYCIN INJ 1,000 MG in SODIUM CHLORIDE 0.9% 250 ML IV SCH (12:46)
[2017-06-17] MEDS: ALPRAZolam 0.25 MG TABLET PO PRN ×2 (13:17→23:04)
[2017-06-17] MEDS: ONDANSETRON 4 MG/2 ML VIAL IV PRN (15:52)
[2017-06-17] MEDS: ALUMINUM/MAGNES/SIMETH MAX STR 30 ML UDCUP PO PRN ×2 (16:45→23:04)
[2017-06-18] MEDS: VANCOMYCIN INJ 1,000 MG in SODIUM CHLORIDE 0.9% 250 ML IV SCH ×2 (01:21→12:32)
[2017-06-18] MEDS: methylPREDNISolone SOD SUC 40 MG/1 ML VIAL IV SCH ×3 (03:12→19:57)
[2017-06-18] MEDS: PIPERACILLIN/TAZOBACTAM 3,375 MG in SODIUM CHLORIDE 0.9% 100 ML IV SCH ×3 (03:12→19:58)
[2017-06-18] MEDS: ONDANSETRON 4 MG/2 ML VIAL IV PRN (03:20)
[2017-06-18] MEDS: NOREPINEPHRINE 8 MG in SODIUM CHLORIDE 0.9% 242 ML IV SCH (04:24)
[2017-06-18] MEDS: ALUMINUM/MAGNES/SIMETH MAX STR 30 ML UDCUP PO PRN (06:23)
[2017-06-18] MEDS: SODIUM CHLORIDE 0.9% 1,000 ML IV SCH ×2 (08:00→19:39)
--- NOTE | 2017-06-18 08:18 | XRay Report ---
XR chest 1V portable Indication: SOB Comparison: Chest x-ray dated June 17, 2017 Technique: Single frontal view of the chest. Findings: The cardiomediastinal silhouette is stable in configuration. Continued bilateral interstitial prominence and right apical scarring. The interstitial lung markings appear slightly more prominent than on comparison study which may reflect interstitial pulmonary edema or infectious/inflammatory process. Continued improvement in left upper/lateral lung consolidation with mild residual remaining. Visualized osseous and surrounding soft tissue structures appear grossly unchanged. IMPRESSION: As above. PROCEDURE INTERPRETED AT [facility] DEPARTMENT OF RADIOLOGY Final Report Signed by: Dr Jarrett Riddle
[2017-06-18] MEDS ORDERED: ACETAMINOPHEN/CODEINE 300-30 MG TABLET PO PRN (08:52)
--- NOTE | 2017-06-18 08:56 | Oncology Progress Note ---
Assessment and Plan (1) Acute myelogenous leukemia Status: Acute Assessment and plan: We will treat the patient with fluid resuscitation and IV antibiotics. High risk for infectious complications given long-standing neutropenia. DO NOT INTUBATE order in place with plans to pursue patient wishes of home hospice care. Current Visit: Yes Oncology Subjective PN Interval history: Patient with AML admitted with hypotension. Blood cultures negative. Continuing on broad-spectrum antibiotics at this time. Patient is awake and alert. His O2 sats are marginal around 92% on 2 L nasal cannula. He denies complaints of pain. He is eating breakfast and his abdomen is soft and nontender. No lower extremity edema is noted. The heart rhythm is regular with a rate of 80. Systolic blood pressure around 110 with overnight discontinuation vasopressors. Plan is move to oncology floor Exam - Constitutional Vitals: Period Temp Pulse Resp BP Sys/Jaquez Pulse Ox Last 24 Hr 96.3 F-98 F 83-109 18-31 67-166/39-88 89-100 Results - Labs CBC & BMP: 06/17/17 02:14 06/17/17 05:58 Quality Measures - VTE Contraindication to Pharmacological VTE Prophylaxis: Thrombocytopenia
[2017-06-18] MEDS: LEVOFLOXACIN INJ 750 MG in PREMIX 1 EACH IV SCH (09:10)
[2017-06-18] MEDS: ONDANSETRON 4 MG TABLET PO SCH ×2 (10:09→18:11)
[2017-06-18] MEDS: ALPRAZolam 0.25 MG TABLET PO PRN ×2 (12:04→16:41)
[2017-06-18] MEDS: MORPHINE 2 MG/1 ML SYRINGE IV PRN ×2 (14:51→20:06)
[2017-06-18] MEDS: CITALOPRAM 20 MG TABLET PO SCH (20:46)
[2017-06-19] MEDS: ONDANSETRON 4 MG TABLET PO SCH ×3 (00:51→18:00)
[2017-06-19] MEDS: MORPHINE 2 MG/1 ML SYRINGE IV PRN ×4 (03:19→22:36)
[2017-06-19] MEDS: PIPERACILLIN/TAZOBACTAM 3,375 MG in SODIUM CHLORIDE 0.9% 100 ML IV SCH ×3 (03:58→21:15)
[2017-06-19] MEDS: methylPREDNISolone SOD SUC 40 MG/1 ML VIAL IV SCH ×3 (03:58→21:14)
[2017-06-19 06:27] LABS: Hematocrit 30.2 VOL% (42.0-52.0); Hemoglobin 10.2 GM/DL (14.0-18.0); Immature Granulocytes % 2.3 %; Immature Granulocytes Absolute 0.01 #; Lymphocytes # 0.1 10*3/uL (1.4-4.0); Lymphocytes % 20.9 % (21.2-54.2); Mean Corpuscular HGB Conc 33.8 GM/DL (32-36); Mean Corpuscular Hemoglobin 32 PG (27-34); Mean Corpuscular Volume 93.8 FL (87-102); Mean Platelet Volume 11.7 FL (9.6-12.0); Monocytes # 0.3 10*3/uL (0.11-0.8); Monocytes % 62.8 % (1.7-12.7); Neutrophils # 0.1 10*3/uL (1.4-7.4); Platelet Count 47 T/CUMM (130-400); Red Blood Count 3.22 MC/CUMM (3.8-5.5); Red Cell Distribution Width 19.5 % (9.3-17.3)
[2017-06-19 06:45] LABS: White Blood Count 0.4 T/CUMM (4-12)
[2017-06-19 06:51] LABS: Calcium 7.6 MG/DL (8.5-10.1); Magnesium 2.5 MG/DL (1.8-2.4); Potassium 4.2 MMOL/L (3.5-5.1)
[2017-06-19 07:00] LABS: Burr Cells 2+; Platelet Estimate Decreased; Segmented Neutrophils 13 % (50-85); Target Cells Slight; Total Cells Counted 100
--- NOTE | 2017-06-19 08:10 | Physician Query Form ---
CLICK EDIT DOCUMENT TO SELECT QUERY ANSWER --> OK --> SIGN PROVIDERS: Make your selection(s) from the choices in EACH section by typing an "x" and enter comments in the comment section. Please use your independent medical judgment in providing your response. This request does not imply that any particular answer is desired or expected. CLINICAL INDICATORS: (Providers should not edit this section) The medical record indicates that the patient was admitted with Acute myelogenous leukemia, 2 positive blood cultures on the 2nd, WBC of 0.2, Lactic Acid Level of 3.2#, Temp of 101.7 in the ER, pulse of 120 and the patient is on Antibiotics. ER impression mentions sepsis, as the attending MD can you please clarify if the sepsis was ? Please clarify which, if any, of the following is the etiology of the above symptoms and treatment rendered: (x ) Sepsis is a confirmed diagnosis ( ) Sepsis is ruled out ( ) Bacteremia (abnormal lab finding only, does not indicate systemic illness) ( ) Other condition, please specify: ( ) Clinically unable to determine Criteria for Sepsis (SIRS due to an infection) should be based on 2 or more of the following being present: Temperature > 101F or < 96.8F WBC > 12,000 or < 4,000, or > 10% bands Tachycardia HR > 90 beats/minute Tachypnea RR > 20 breaths/minute or PaCO2 > 32mmHg Lactate level > 2.0 mmol/L (>4 is equivalent to severe sepsis) Altered Mental Status Mottling of skin or prolonged capillary refill Non-diabetic hyperglycemia (blood sugar >120 mg/dl) Other evidence of acute organ failure associated with sepsis ( severe sepsis) COMMENTS: PLEASE ALSO DOCUMENT RESPONSE IN PROGRESS NOTES AND/OR DISCHARGE SUMMARY Use of terms such as suspected, likely, or probable (associated with a specific diagnosis that is being evaluated, monitored, or treated as if it exists) are acceptable and can be restated in the discharge summary if not ruled out. MTDD
--- NOTE | 2017-06-19 08:10 | Physician Query Form ---
CLICK EDIT DOCUMENT TO SELECT QUERY ANSWER --> OK --> SIGN Steph Mcdonald RN, CCDS Certified Clinical Zoning Administrator W) [phone] (f) [phone] [email or web address] PROVIDERS: Make your selection(s) from the choices in EACH section by typing an "x" and enter comments in the comment section. Please use your independent medical judgment in providing your response. This request does not imply that any particular answer is desired or expected. CLINICAL INDICATORS: (Providers should not edit this section) The medical record indicates that the patient was admitted with Acute myelogenous leukemia, Respirations 26, "accessory muscle use", "respiratory distress" and the patient was placed on a NBR for a few hours. ABG's pH 7.454-----pCO2 36.7----p02 81.4----- If possible, please further clarify the type and acuity of respiratory diagnosis : ACUITY: ( x) Acute ( ) Chronic ( ) Acute on Chronic TYPE: ( x) Respiratory failure with hypoxia ( ) Respiratory failure with hypercapnia ( ) Respiratory Arrest ( ) Postprocedural/postoperative respiratory failure ( ) Respiratory Insufficiency ( ) ARDS (Adult/Acute Respiratory Distress Syndrome) ( ) Other, please specify: ( ) Clinically unable to determine Recognized criteria for respiratory failure PH <7.35 or >7.45 PO2 <60 PCO2 >50 RR >24 O2 Sat <90% on RA or <95% on O2 Use of accessory muscles Unable to speak in full sentences Intubation is not required COMMENTS: PLEASE ALSO DOCUMENT RESPONSE IN PROGRESS NOTES AND/OR DISCHARGE SUMMARY Use of terms such as suspected, likely, or probable (associated with a specific diagnosis that is being evaluated, monitored, or treated as if it exists) are acceptable and can be restated in the discharge summary if not ruled out. MTDD
[2017-06-19] MEDS: SODIUM CHLORIDE 0.9% 1,000 ML IV SCH (09:29)
[2017-06-19] MEDS: LEVOFLOXACIN INJ 750 MG in PREMIX 1 EACH IV SCH (09:31)
[2017-06-19] MEDS ORDERED: TUBERCULIN SKIN TEST 0.1 ML SYRINGE INTRADERM ONE (10:21)
[2017-06-19] MEDS ORDERED: LORazepam 2 MG/1 ML VIAL IV PRN (10:23)
--- NOTE | 2017-06-19 10:26 | Oncology Progress Note ---
Assessment and Plan (1) Acute myelogenous leukemia Status: Acute Assessment and plan: We will treat the patient with fluid resuscitation and IV antibiotics. High risk for infectious complications given long-standing neutropenia. DO NOT INTUBATE order in place with plans to pursue patient wishes of home hospice care. Current Visit: Yes Oncology Subjective PN Interval history: Patient with AML admitted with sepsis. Blood cultures are growing pansensitive Pseudomonas. He is on Levaquin and Zosyn. Vancomycin was discontinued yesterday. He is lethargic on examination today. He does report some chest discomfort. He has had desaturations overnight. He has a history of chronic lung disease and long-standing rheumatoid arthritis. He is nonambulatory. The patient was clearly desiring of hospice care at the time of this admission. We have discussed DO NOT RESUSCITATE previously and at this time I feel that comfort measures are most warranted. I will discontinue his labs and continue to provide support in terms of oxygen and morphine. As of right now I am continuing his antibiotics. There was no family present during this morning's rounds. If he survives the acute illness and I would like to pursue fpc placement with hospice to follow. Exam - Constitutional Vitals: Period Temp Pulse Resp BP Sys/Jaquez Pulse Ox Last 24 Hr 96.1 F-97.7 F 88-97 12-24 98-121/50-65 85-99 Results - Labs CBC & BMP: 06/19/17 06:01 06/19/17 06:01 Quality Measures - VTE Contraindication to Pharmacological VTE Prophylaxis: Thrombocytopenia
[2017-06-19] MEDS: CITALOPRAM 20 MG TABLET PO SCH (21:16)
[2017-06-20] MEDS: ONDANSETRON 4 MG TABLET PO SCH ×3 (01:02→18:54)
[2017-06-20] MEDS: MORPHINE 2 MG/1 ML SYRINGE IV PRN ×3 (01:30→18:53)
[2017-06-20] MEDS: PIPERACILLIN/TAZOBACTAM 3,375 MG in SODIUM CHLORIDE 0.9% 100 ML IV SCH (03:25)
[2017-06-20] MEDS: methylPREDNISolone SOD SUC 40 MG/1 ML VIAL IV SCH (03:25)
[2017-06-20 05:27] LABS: Hematocrit 30.8 VOL% (42.0-52.0); Lymphocytes # 0.3 10*3/uL (1.4-4.0); Lymphocytes % 44.1 % (21.2-54.2); Mean Corpuscular HGB Conc 32.5 GM/DL (32-36); Mean Corpuscular Hemoglobin 31 PG (27-34); Mean Corpuscular Volume 96.3 FL (87-102); Mean Platelet Volume 11.8 FL (9.6-12.0); Monocytes # 0.3 10*3/uL (0.11-0.8); Monocytes % 42.4 % (1.7-12.7); Neutrophils # 0.1 10*3/uL (1.4-7.4); Neutrophils % 13.5 % (38.7-73.9); Platelet Count 41 T/CUMM (130-400); Red Cell Distribution Width 19.5 % (9.3-17.3)
[2017-06-20 05:39] LABS: White Blood Count 0.6 T/CUMM (4-12)
[2017-06-20 06:16] LABS: Lymphocytes 50 % (20-55); Segmented Neutrophils 10 % (50-85); Total Cells Counted 100
[2017-06-20 06:17] LABS: Hypochromasia 1+
[2017-06-20 06:18] LABS: Anisocytosis 1+; Burr Cells Slight; Microcytosis 1+; Ovalocytes Slight
[2017-06-20 06:19] LABS: Platelet Estimate Decreased
[2017-06-20] MEDS: SODIUM CHLORIDE 0.9% 1,000 ML IV SCH ×3 (08:01→08:35)
[2017-06-20 08:24] VITALS: BP 105/51
[2017-06-20] MEDS: LEVOFLOXACIN INJ 750 MG in PREMIX 1 EACH IV SCH (08:34)
--- NOTE | 2017-06-20 10:02 | Oncology Progress Note ---
Oncology Subjective PN Interval history: Mr. Eastman appears to be resting comfortably this morning. He is now on comfort measures only. We will continue his current medicine regimen to ensure that he has no issues with pain or agitation. I am unsure if the future plan is for home hospice or if he will remain in the hospital for his comfort measures. That seems to be some question about his social situation at home. There is no reason to continue checking labs on him. I also think we should stop checking vital signs. Exam - Constitutional Vitals: Period Temp Pulse Resp BP Sys/Jaquez Pulse Ox Last 24 Hr 96.5 F-98.3 F 88-92 10-22 85-117/50-70 80-100 General appearance: no acute distress, under weight - Head Head Exam: Present: normocephalic, atraumatic - Eye Eye Exam: Present: EOMI Pupils: Present: PERRL - ENT ENT exam: Present: normal exam, normal oropharynx - Neck Neck exam: Absent: lymphadenopathy, thyromegaly - Respiratory Respiratory exam: Present: CTAB. Absent: wheezes Results - Labs CBC & BMP: 06/20/17 04:48 06/19/17 06:01 Quality Measures - VTE Contraindication to Pharmacological VTE Prophylaxis: Thrombocytopenia
[2017-06-20] MEDS: CITALOPRAM 20 MG TABLET PO SCH (20:40)
[2017-06-21] MEDS: MORPHINE 2 MG/1 ML SYRINGE IV PRN ×3 (00:11→16:12)
[2017-06-21] MEDS: ONDANSETRON 4 MG TABLET PO SCH ×3 (01:13→16:17)
--- NOTE | 2017-06-21 08:25 | Oncology Progress Note ---
Assessment and Plan (1) Pseudomonal bacteremia Status: Acute Current Visit: Yes (2) Pancytopenia Status: Acute Current Visit: Yes (3) Acute myelogenous leukemia Status: Acute Current Visit: Yes Oncology Subjective PN Interval history: There is nothing new on Mr. Eastman. He was asleep on my exam today. We will continue with comfort measures. Family would like to have him home in the next day or 2. Exam - Constitutional Vitals: Period Temp Pulse Resp BP Sys/Jaquez Pulse Ox Last 24 Hr 8-24 General appearance: no acute distress, under weight - Head Head Exam: Present: normocephalic, atraumatic - Eye Eye Exam: Present: EOMI Pupils: Present: PERRL - Respiratory Respiratory exam: Present: CTAB. Absent: wheezes - Cardiovascular Cardiovascular exam: Present: RRR. Absent: JVD Results - Labs CBC & BMP: 06/20/17 04:48 06/19/17 06:01 Quality Measures - VTE Contraindication to Pharmacological VTE Prophylaxis: Thrombocytopenia
[2017-06-21] MEDS: LEVOFLOXACIN INJ 750 MG in PREMIX 1 EACH IV SCH (09:38)
[2017-06-21] MEDS: CITALOPRAM 20 MG TABLET PO SCH (20:03)
[2017-06-22] MEDS: ONDANSETRON 4 MG TABLET PO SCH (00:49)
[2017-06-22] MEDS: MORPHINE 2 MG/1 ML SYRINGE IV PRN (00:49)
--- NOTE | 2017-06-22 09:06 | Discharge Summary ---
Hospital Course - Hospital Course Hospital Course: Patient with AML, chronic lung disease, and long-standing rheumatoid arthritis admitted with sepsis. Patient made DNR per request. He was admitted initially to the ICU and received IV antibiotics. He had positive urine and blood cultures. He did require vasopressors during the first 24 hours but these were able to be weaned to off. He continued to require supplemental O2 during his hospital stay. He was treated with antibiotics and supportive care on the general oncology unit. Despite these measures the patient succumbed to his underlying illness and around 530 this morning. Diagnosis - Discharge Diagnosis (1) Acute myelogenous leukemia Status: Acute Discharge Plan - Discharge Data Disposition: - Discharge Medications No Action Acetaminophen with Codeine [Acetaminophen-Cod #4 Tablet] 1 each PO Q6H PRN PRN Reason: Pain Citalopram [CeleXA] 20 mg PO BEDTIME Ondansetron HCl 4 mg PO Q8H Amoxicillin/Potassium Clav [Amox-Clav 875-125 mg Tablet] 1 tablet PO BID Fluticasone/Vilanterol [Breo Ellipta 100-25 Mcg INH] 1 puff INH DAILY - Follow Up or Referral - Forms/Instructions Exam - Constitutional Vitals: Period Temp Pulse Resp BP Sys/Jaquez Pulse Ox Last 24 Hr 8-24 DS: Provider Date of admission: 06/17/17 04:01 Primary care physician: . No PCP Attending physician on admission: Abiel Hardy MD Consults: 06/17/17 13:00 Consult to Dietitian [CONS] Routine Reason for Dietitian: Supplements and/or Snacks Discharging clinician: Abiel Hardy MD
--- NOTE | 2017-06-24 15:00 | Physician Query Form ---
CLICK EDIT DOCUMENT TO SELECT QUERY ANSWER --> OK --> SIGN Steph Mcdonald RN, CCDS Certified Clinical International Trade Specialist W) [phone] (f) [phone] [email or web address] PROVIDERS: Make your selection(s) from the choices in EACH section by typing an "x" and enter comments in the comment section. Please use your independent medical judgment in providing your response. This request does not imply that any particular answer is desired or expected. CLINICAL INDICATORS: (Providers should not edit this section) The medical record indicates that the patient was admitted with Acute myelogenous leukemia, Sepsis, and he "did require vasopressors during the first 24 hours but these were able to be weaned to off". Please clarify which, if any, of the following is the etiology of the above symptoms and treatment rendered: ( x) Hypovolemic shock ( ) Septic shock ( ) Cardiogenic shock ( ) Hemorrhagic shock ( ) Traumatic shock ( ) Shock due to, please specify etiology: ( ) Shock, unknown etiology ( ) Drug induced, please specify substance: ( ) Iatrogenic Hypotension ( ) Orthostatic Hypotension ( ) Hypotension, unknown etiology ( ) Other, please specify: ( ) Clinically unable to determine COMMENTS: PLEASE ALSO DOCUMENT RESPONSE IN PROGRESS NOTES AND/OR DISCHARGE SUMMARY Use of terms such as suspected, likely, or probable (associated with a specific diagnosis that is being evaluated, monitored, or treated as if it exists) are acceptable and can be restated in the discharge summary if not ruled out. MTDD
== END 2017-06-22 05:45 | disposition expired | DRG 871 ==
LOC: EDBD → EDUNIT# → N.ED 01:21 → N.EDINP 04:01 → N.CC 11:31 → N.4E 06-18 10:22
PROVIDERS: ADMIT Specialist; ATTEND Specialist